=== PATIENT | male | born 1940 | race Caucasian/White ===

== ENCOUNTER 2020-04-15 06:08 | Inpatient (IN) | payer OTHER, MEDICARE ==
[~2020-04-15] VITALS: Ht 188 cm; Wt 103.0 kg
--- NOTE | ~2020-04-15 | EMS ---
[address] [address] EMS Patient Care Report Name: SONIYA MONCADA Room #: REG OZIEL Velasquez#: [id number] Admission: 04/15/20 Attend Phys: Discharge: Date of : 42 Report #: [id number] THIS REPORT FOR: //name// Report Transmitted: 04/15/2020 06:24 EMS Care Summary [facility] MED-ACT Incident [id number] @ 04/15/2020 05:18 Incident Location [address] [place] [address] Patient SONIYA MONCADA Male, 80 Years 1940 Patient Address [address] [place] [address] Patient History Diabetes,Hypertension (HTN),Atrial Fibrillation, Patient Allergies Penicillin allergy,Sulfa,Other drug allergy, Patient Medications Plavix, Omeprazole, Lisinopril, Finasteride, Atenolol, Lasix, Chief Complaint "I can't breathe" Disposition Transported No Lights/[place] Dispatch Reason Breathing Problem Transported To [facility] Narrative [id number] arrived on scene to find pt seated on the edge of his bed. Pt appeared to have an elevated respiratory rate. Pt states "I've been having shortness of breath since about 2330 last night. [address] [address] EMS Patient Care Report Name: SONIYA MONCADA Room #: REG OZIEL Velasquez#: [id number] Admission: 04/15/20 Attend Phys: Discharge: Date of : 42 Report #: [id number] It kept getting worse, so I figured I should call you guys." Pt reports staying in his home and only having two different people bring him groceries and essentials. Pt denies recent illness. Pt initially complains of some pain between his shoulder blades, but says "it's because I'm sitting up." Pt's pain went away after he was laying on the cot. Pt denies chest pain, dizziness, or nausea. However, he states he is weaker than normal. VS, exam. Pt heavily assisted to stand and sit on stair chair, secured with seatbelts--> heavily assisted to stand and sit on cot, secured with seatbelts--> unit. ECG, 12 lead, IV established, 400 ccs of NS given upon hospital arrival. bG checked- 142. Initial Vitals @05:49P: 93,BP: 105/68, @05:51P: 160,SpO2: 97, @05:41P: 81, @05:30P: 69,BP: 61/38,SpO2: 97, @05:47P: 115,DC Suspected: false @05:56P: 96,SpO2: 79, @06:02P: 79,R: 16,BP: 120/77,Pain: 0/10,GCS: 15,Glucose: 142,SpO2: 98,Revised Trauma: 12, @05:28P: 104,BP: 75/41,Pain: 2/10,GCS: 15,SpO2: 99, Assessments @05:26MENTAL:Person Oriented,Time Oriented,Place Oriented,Event Oriented,SKIN:HEENT:Head/Face: No Abnormalities,Neck/Airway: No Abnormalities,LUNG SOUNDS:General: No Abnormalities,ABDOMEN:General: No Abnormalities,PELVIS//GI:No Abnormalities,EXTREMITIES:Left Leg: Weakness,Right Leg: Weakness,Left Arm: Weakness,Right Arm: Weakness,PULSE:Radial: Absent,NEURO:Weakness Left-Sided,Weakness Right-Sided, Impression Hypotension Procedures @05:4712-Lead ECGResponse: UnchangedSucceeded@05:47Normal Saline (.9% NaCl) 400cc (20 ga) Site: Antecubital-RightResponse: UnchangedSucceeded Timeline 05:18,Call Received 05:18,Psap Call 05:18,Dispatched 05:20,En Route 05:23,On Scene 05:25,At Patient 05:28,BP: 75/41 M,PULSE: 104,RR: R,SPO2: 99 Ox,ETCO2: ,BG: ,PAIN: 2,GCS: 15, [address] [address] EMS Patient Care Report Name: SONIYA MONCADA Room #: REG [facility].#: [id number] Admission: 04/15/20 Attend Phys: Discharge: Date of : 42 Report #: [id number] 05:30,BP: 61/38 M,PULSE: 69,RR: R,SPO2: 97 Ox,ETCO2: ,BG: ,PAIN: ,GCS: , 05:41,BP: / M,PULSE: 81,RR: R,SPO2: Ox,ETCO2: ,BG: ,PAIN: ,GCS: , 05:47,Normal Saline (.9% NaCl) 400cc 20 ga Site: Antecubital-Right,Response: UnchangedSucceeded, 05:47,12-Lead ECG,Response: UnchangedSucceeded, 05:47,BP: / M,PULSE: 115,RR: R,SPO2: Ox,ETCO2: ,BG: ,PAIN: ,GCS: , 05:49,BP: 105/68 M,PULSE: 93,RR: R,SPO2: Ox,ETCO2: ,BG: ,PAIN: ,GCS: , 05:50,Depart Scene 05:51,BP: / M,PULSE: 160,RR: R,SPO2: 97 Ox,ETCO2: ,BG: ,PAIN: ,GCS: , 05:56,BP: / M,PULSE: 96,RR: R,SPO2: 79 Ox,ETCO2: ,BG: ,PAIN: ,GCS: , 06:02,At Destination 06:02,BP: 120/77 M,PULSE: 79,RR: 16 R,SPO2: 98 Ox,ETCO2: ,B,PAIN: 0,GCS: 15, 06:29,Call Closed Disclaimer v1.1 Copyright 2020 [employer] This EMS Care Summary contains data elements from the applicable legal record (which may be displayed differently). It is designed to provide pertinent information for the following purposes: continuity of care, clinical quality, and state data reporting. The complete legal record is available to ED staff and administrators of the receiving hospital in [employer] Patient Tracker. All data is provided "as is."
--- NOTE | ~2020-04-15 | EMS ---
[address] [address] EMS Patient Care Report Name: SONIYA MONCADA Room #: 211-P [facility] IN M.R.#: [id number] Admission: 04/15/20 Attend Phys: Jaime Holley MD Discharge: 04/20/20 Date of : 42 Report #: [id number] THIS REPORT FOR: //name// Report Transmitted: 04/23/2020 09:58 EMS Care Summary [facility] MED-ACT Incident [id number] @ 04/15/2020 05:18 Incident Location [address] [place] [address] [address] [address] Patient SONIYA MONCADA Male, 80 Years 1940 Patient Address [address] [place] [address] Patient History Diabetes,Hypertension (HTN),Atrial Fibrillation, Patient Allergies Penicillin allergy,Sulfa,Other drug allergy, Patient Medications Plavix, Omeprazole, Lisinopril, Finasteride, Atenolol, Lasix, Chief Complaint "I can't breathe" Disposition Transported No Lights/[place] Dispatch Reason Breathing Problem Transported To [facility] Narrative [id number] arrived on scene to find pt seated on the edge of his bed. Pt appeared to have an elevated respiratory rate. [address] [address] EMS Patient Care Report Name: SONIYA MONCADA Room #: 211-P DIS IN .R.#: [id number] Admission: 04/15/20 Attend Phys: Jaime Holley MD Discharge: 04/20/20 Date of : 42 Report #: [id number] Pt states "I've been having shortness of breath since about 2330 last night. It kept getting worse, so I figured I should call you guys." Pt reports staying in his home and only having two different people bring him groceries and essentials. Pt denies recent illness. Pt initially complains of some pain between his shoulder blades, but says "it's because I'm sitting up." Pt's pain went away after he was laying on the cot. Pt denies chest pain, dizziness, or nausea. However, he states he is weaker than normal. VS, exam. Pt heavily assisted to stand and sit on stair chair, secured with seatbelts--> heavily assisted to stand and sit on cot, secured with seatbelts--> unit. ECG, 12 lead, IV established, 400 ccs of NS given upon hospital arrival. bG checked- 142. Initial Vitals @05:49P: 93,BP: 105/68, @05:51P: 160,SpO2: 97, @05:41P: 81, @05:30P: 69,BP: 61/38,SpO2: 97, @05:47P: 115,ID Suspected: false @05:56P: 96,SpO2: 79, @06:02P: 79,R: 16,BP: 120/77,Pain: 0/10,GCS: 15,Glucose: 142,SpO2: 98,Revised Trauma: 12, @05:28P: 104,BP: 75/41,Pain: 2/10,GCS: 15,SpO2: 99, Assessments @05:26MENTAL:Person Oriented,Time Oriented,Place Oriented,Event Oriented,SKIN:HEENT:Head/Face: No Abnormalities,Neck/Airway: No Abnormalities,LUNG SOUNDS:General: No Abnormalities,ABDOMEN:General: No Abnormalities,PELVIS//GI:No Abnormalities,EXTREMITIES:Left Leg: Weakness,Right Leg: Weakness,Left Arm: Weakness,Right Arm: Weakness,PULSE:Radial: Absent,NEURO:Weakness Left-Sided,Weakness Right-Sided, Impression Hypotension Procedures @05:4712-Lead ECGResponse: UnchangedSucceeded@05:47Normal Saline (.9% NaCl) 400cc (20 ga) Site: Antecubital-RightResponse: UnchangedSucceeded Timeline 05:17,Call Received 05:17,Psap Call 05:18,Dispatched 05:20,En Route 05:23,On Scene 05:25,At Patient [address] [address] EMS Patient Care Report Name: SONIYA MONCADA Room #: 211-P [facility] IN M.R.#: [id number] Admission: 04/15/20 Attend Phys: Jaime Holley MD Discharge: 04/20/20 Date of : 42 Report #: [id number] 05:28,BP: 75/41 M,PULSE: 104,RR: R,SPO2: 99 Ox,ETCO2: ,BG: ,PAIN: 2,GCS: 15, 05:30,BP: 61/38 M,PULSE: 69,RR: R,SPO2: 97 Ox,ETCO2: ,BG: ,PAIN: ,GCS: , 05:41,BP: / M,PULSE: 81,RR: R,SPO2: Ox,ETCO2: ,BG: ,PAIN: ,GCS: , 05:47,Normal Saline (.9% NaCl) 400cc 20 ga Site: Antecubital-Right,Response: UnchangedSucceeded, 05:47,12-Lead ECG,Response: UnchangedSucceeded, 05:47,BP: / M,PULSE: 115,RR: R,SPO2: Ox,ETCO2: ,BG: ,PAIN: ,GCS: , 05:49,BP: 105/68 M,PULSE: 93,RR: R,SPO2: Ox,ETCO2: ,BG: ,PAIN: ,GCS: , 05:50,Depart Scene 05:51,BP: / M,PULSE: 160,RR: R,SPO2: 97 Ox,ETCO2: ,BG: ,PAIN: ,GCS: , 05:56,BP: / M,PULSE: 96,RR: R,SPO2: 79 Ox,ETCO2: ,BG: ,PAIN: ,GCS: , 06:02,At Destination 06:02,BP: 120/77 M,PULSE: 79,RR: 16 R,SPO2: 98 Ox,ETCO2: ,B,PAIN: 0,GCS: 15, 06:30,Call Closed Disclaimer v1.1 Copyright 2020 [employer] This EMS Care Summary contains data elements from the applicable legal record (which may be displayed differently). It is designed to provide pertinent information for the following purposes: continuity of care, clinical quality, and state data reporting. The complete legal record is available to ED staff and administrators of the receiving hospital in [employer]'s Patient Tracker. All data is provided "as is."
[~2020-04-15 06:08] MED LIST: ACETAMINOPHEN325 M1 PO; ACIDOPHILUS PR1 EACH PO; ACTOS 30 MG TAB30 M1 PO; ACTOS 45 MG45 M1 PO; ALDACTONE25 MG PO; ANTACID II-SIM360 ML PO; APAP650 PO; ASPIR 8181 MG PO; ASPIRIN325 PO; ASPIRIN81 M2 PO; ATENOLOL 100MG100 MG PO; BACTRIM DS TAB1 EACH PO; BETADINE1 EACH TOP; CARDIZEM CD240 MG PO; CENTRUM SILVER1 EAC2 PO; CENTRUM SILVER1 EAC4 PO; CIPROFLOXACIN500 M1 PO; CLINDAMYCIN HC150 MG PO; CLONIDINE PO; CLOTRIMAZOLE 1%15 G1 TOP; COLACE100 MG PO; COMPAZINE10 M2 PO; COUMADIN 5 MG TA5 M1 PO; DILTIAZEM 24HR120 M2 PO; DILTIAZEM 24HR240 M1 PO; DILTIAZEM 24HR360 M1 PO; DILTIAZEM ER240 M1 PO; DOCUSATE SODIU100 MG PO; FENTANYL 1100 MCG/HR TOP; FENTANYL PA25 MCG/HR TRANSDERM; FENTANYL PATCH75 MCG TRANSDERM; FLOMAX0.4 MG PO; GABAPENTIN 100100 MG PO; GLUCERNA1 EACH PO; GLUCOPHAGE1000 MG PO; HYCODAN SYRUP480 ML PO; HYDROCODON-ACE1 EAC5 PO; HYDROCODON-ACE1 EAC7 PO; IBUPROFEN 200200 M1 PO; IRON325 PO; LANOXIN 0.250.25 M1 PO; LANTUS SOL100 UNIT/1 SUBQ; LANTUS SUBQ; LASIX 40 MG TAB40 M2 PO; LISINOPRIL40 MG PO; LISINOPRIL5 MG PO; LOPRESSOR 50 MG50 M1 PO; LYRICA 50 MG50 MG PO; MELATONIN3 MG PO; METFORMIN HCL500 MG PO; METHOCARBAMOL500 M2 PO; MINOCIN100 MG PO; MIRALAX17 GM PO; MIRALAX255 GM PO; MOM PO; MULTIVITAMINS1 EAC7 PO; NORCO 10-325 T1 EACH PO; NORCO 5-325 TA1 EACH PO; NOVOLOG100 UNIT/1 SUBQ; NYSTATIN1 EA10 TOP; NYSTOP; OXYCODONE HCL 55 MG PO; OXYCODONE HCL5 MG PO; PIOGLITAZONE15 MG PO; PLAVIX 75 MG TA75 M1 PO; POVIDONE IODINE; PRILOSEC 20 MG20 MG PO; PROBIOTIC1 EAC1 PO; PROSCAR 5MG TABL5 MG PO; ROBAXIN 750 MG750 M1 PO; ROBAXIN500 MG PO; ROXICODONE5 M2 PO; TOPROL XL100 MG PO; TOPROL XL25 MG PO; TOPROL XL50 MG PO; TORSEMIDE PO; TRILEPTAL150 MG PO; TYLENOL325 MG PO; VAN500AD IV; VANCOMYCIN1 GM/2502 IVPB; VITAMINC500 PO; ZAROXOLYN 5MG TA5 M1 PO; ZESTRIL2.5 MG PO; ZOFRAN4 MG PO
[2020-04-15 06:12] VITALS: BP 112/74
[2020-04-15 06:37] LABS: HEMATOCRIT 35.9 % (42.0-52.0); HEMOGLOBIN 11.8 gm/dL (14.0-18.0); MCH 30.6 pg (26.0-34.0); MCHC 32.9 g/dL (28.0-37.0); MCV 93.2 fL (80.0-100.0); PLATELET COUNT 131 thou/uL (150-400); RBC 3.85 mil/uL (4.50-6.00); RDW 16.7 % (10.5-14.5); WBC 4.5 thou/uL (4.0-11.0)
[2020-04-15 06:51] LABS: URINE BLOOD 2+ (Negative); URINE CLARITY CLEAR; URINE GLUCOSE-RANDOM* NEGATIVE (Negative); URINE KETONES TRACE (Negative); URINE NITRITE-REFLEX NEGATIVE (Negative); URINE PROTEIN (DIPSTICK) 1+ (Negative); URINE SPECIFIC GRAVITY >= 1.030 (1.005-1.035)
[2020-04-15 06:55] LABS: URINE LEUKOCYTES-REFLEX 1+ (Negative)
[2020-04-15 06:56] LABS: ICTOTEST (BILI CONFIRMATORY) Negative (Negative); URINE BILIRUBIN NEGATIVE (Negative); URINE COLOR DK YELLOW
[2020-04-15 07:03] LABS: ANION GAP 9 mmol/L (7-16); BUN 31 mg/dL (7-18); CALCIUM 8.8 mg/dL (8.5-10.1); CHLORIDE 110 mmol/L (98-107); CO2 24 mmol/L (21-32); CREATININE 1.6 mg/dL (0.7-1.3); GLUCOSE 148 mg/dL (74-106); POTASSIUM 4.2 mmol/L (3.5-5.1); SODIUM 143 mmol/L (136-145)
[2020-04-15 07:12] LABS: TROPONIN-I <0.06 ng/mL (<0.06)
[2020-04-15 07:51] LABS: CASTS None Seen /LPF (None Seen); CRYSTALS None Seen /LPF (None Seen); SQUAMOUS None Seen /LPF (0-3); URINE RBC 3-10 Few /HPF (0-2)
[2020-04-15 07:53] LABS: WBC CLUMPS Occasional (None Seen)
--- NOTE | 2020-04-15 08:51 | EKG ---
[facility] [place] [address] ELECTROCARDIOGRAM REPORT Name: SONIYA MONCADA Room #: REG [facility]#: [id number] Admission: 04/15/20 Attend Phys: Discharge: Date of : 44 Report #: [id number] THIS REPORT FOR: cc: [facility] - Clinic physician unknown [facility] - Clinic physician unknown Kuldeep Cavazos MD [facility] ~ THIS REPORT FOR: //name// [facility] ED Test Date: 2020-04-15 Test Time: 06:14:29 Pat Name: SONIYA OMNCADA Department: Room: Gender: Community Health Nurse Staff: DELGADO SCOTT : 1940 Requested By: Celestino Willingham Order Number: [id number] MD: Kuldeep Cavazos Measurements Intervals [place] Rate: 121 P: [place]: QRS: 20 QRSD: 97 T: QT: 367 QTc: 521 Interpretive Statements Atrial fibrillation Prolonged QT interval Compared to ECG 04/18/2016 16:57:51 Prolonged QT interval now present Electronically Signed On 04-15-2020 8:51:24 CDT by Kuldeep Cavazos [email or web address] <ELECTRONICALLY SIGNED> By: Kuldeep Cavazos MD, FAC 0851 3 3 Kuldeep Cavazos MD, [facility] /EPI
[2020-04-15 08:52] LABS: ABSOLUTE NEUTROPHILS 3.2 thou/uL (1.4-8.2); ANISOCYTOSIS 1+
[2020-04-15] MEDS ORDERED: KEFLEX500 M1 PO (09:26)
[2020-04-15 12:31] VITALS: BP 100/65
[2020-04-15 14:43] LABS: ALBUMIN 2.2 g/dL (3.4-5.0); MAGNESIUM 1.7 mg/dL (1.8-2.4); TOTAL PROTEIN 6.5 g/dL (6.4-8.2)
[2020-04-15 15:09] LABS: TSH 3.303 uIU/mL (0.358-3.740)
[2020-04-15 15:29] VITALS: BP 107/72
[2020-04-15 20:08] VITALS: BP 92/58
[2020-04-16 01:06] LABS: GLYCOHEMOGLOBIN (HGB A1C) 5.3 % (4.8-5.6)
[2020-04-16 05:57] VITALS: BP 90/57
[2020-04-16 09:48] VITALS: BP 83/49
[2020-04-16 10:06] LABS: HEMOGLOBIN 11.6 gm/dL (14.0-18.0); MCHC 33.1 g/dL (28.0-37.0); MCV 93.6 fL (80.0-100.0); RBC 3.74 mil/uL (4.50-6.00); RDW 17.2 % (10.5-14.5); WBC 3.9 thou/uL (4.0-11.0)
[2020-04-16 10:07] LABS: CALCIUM 8.7 mg/dL (8.5-10.1); CREATININE 1.6 mg/dL (0.7-1.3); MAGNESIUM 1.7 mg/dL (1.8-2.4); POTASSIUM 4.2 mmol/L (3.5-5.1)
[2020-04-16 11:05] VITALS: BP 135/116
[2020-04-16 22:00] VITALS: BP 62/38
[2020-04-16 22:46] VITALS: BP 74/48
[2020-04-16 23:42] VITALS: BP 91/54
[2020-04-17 01:02] VITALS: BP 85/59
[2020-04-17 04:09] LABS: HEMATOCRIT 32.7 % (42.0-52.0); HEMOGLOBIN 10.7 gm/dL (14.0-18.0); MCH 30.7 pg (26.0-34.0); MCHC 32.7 g/dL (28.0-37.0); RBC 3.48 mil/uL (4.50-6.00); RDW 17.2 % (10.5-14.5); WBC 4.1 thou/uL (4.0-11.0)
[2020-04-17 04:12] LABS: CALCIUM 8.4 mg/dL (8.5-10.1); CREATININE 1.8 mg/dL (0.7-1.3); MAGNESIUM 1.9 mg/dL (1.8-2.4); POTASSIUM 4.1 mmol/L (3.5-5.1)
[2020-04-17 04:28] VITALS: BP 85/56
[2020-04-17 07:32] VITALS: BP 103/59
[2020-04-17 11:31] VITALS: BP 84/47
[2020-04-17 15:12] VITALS: BP 108/57
[2020-04-17 19:53] VITALS: BP 103/61
[2020-04-18 03:04] VITALS: BP 94/45
[2020-04-18 07:45] VITALS: BP 91/41
--- NOTE | 2020-04-18 08:54 | EKG ---
[facility] [address] [facility] [place] [address] ELECTROCARDIOGRAM REPORT Name: SONIYA MONCADA Room #: 211-P ADM IN M.R.#: [id number] Admission: 04/15/20 Attend Phys: Jaime Holley MD Discharge: Date of : 42 Report #: [id number] THIS REPORT FOR: cc: [facility] - Clinic physician unknown [facility] - Clinic physician unknown Kuldeep Cavazos MD [facility] ~ THIS REPORT FOR: //name// [facility] Test Date: 2020-04-16 Test Time: 22:14:48 Pat Name: SONIYA MONCADA Department: Room: 211 Gender: M Administrative Specialist: LOUISE : 1940 Requested By: Meryl Martinez Order Number: [id number] MD: Kuldeep Cavazos Measurements Intervals [place] Rate: 85 P: [place]: QRS: 10 QRSD: 111 T: 242 QT: 469 QTc: 558 Interpretive Statements Atrial fibrillation Low voltage Abnormal R-wave progression, late transition Prolonged QT interval Compared to ECG 04/15/2020 06:14:29 Low QRS voltage now present Electronically Signed On 04-18-2020 8:53:50 CDT by Kuldeep Cavazos [email or web address] <ELECTRONICALLY SIGNED> By: Kuldeep Cavazos MD, [facility] 04/18/20 0853 2214 221 Kuldeep Cavazos MD, [facility] /EPI
[2020-04-18 09:38] LABS: HEMATOCRIT 34.9 % (42.0-52.0); HEMOGLOBIN 11.7 gm/dL (14.0-18.0); MCH 31.3 pg (26.0-34.0); MCHC 33.5 g/dL (28.0-37.0); MCV 93.4 fL (80.0-100.0); RBC 3.74 mil/uL (4.50-6.00); RDW 17.3 % (10.5-14.5); WBC 3.9 thou/uL (4.0-11.0)
[2020-04-18 09:58] LABS: CALCIUM 8.4 mg/dL (8.5-10.1); CREATININE 1.7 mg/dL (0.7-1.3); MAGNESIUM 1.8 mg/dL (1.8-2.4)
[2020-04-18 12:00] VITALS: BP 89/59
--- NOTE | 2020-04-18 13:45 | 2DMMODE ---
[address] [address] 2 D/M-MODE ECHOCARDIOGRAM Name: SONIYA MONCADA TERRENCE Room #: 211-P ADM IN M.R.#: [id number] Admission: 04/15/20 Attend Phys: Jaime Holley MD Discharge: Date of : 42 Report #: [id number] THIS REPORT FOR: cc: [facility] - Clinic physician unknown [facility] - Clinic physician unknown Jacky Menendez MD ~ APPROVED REPORT Study performed: 04/18/2020 11:25:57 EXAM: Comprehensive 2D, Doppler, and color-flow Echocardiogram Patient Location: Bedside Room #: 211 Status: routine BSA: 2.26 HR: 77 bpm BP: 91/41 mmHg Rhythm: Atrial Fibrillation Other Information Study Quality: Technically Difficult Technically limited study due to body habitus, inability to position patient. Indications Hypotension Diabetes Atrial Fibrillation Hypertension/HDD Echo Enhancing Agent Indication: Endocardial border delineation Agent(s) / Amount(s) Used: Optison 4 cc 2D Dimensions IVC: 24.00 mm Aortic Valve AoV Peak Ernesto.: 0.67 m/s AO Peak Gr.: 1.81 mmHg Pulmonary Valve PV Peak Ernesto.: 0.53 m/s PV Peak Gr.: 1.[address] [address] 2 D/M-MODE ECHOCARDIOGRAM Name: SONIYA MONCADA Room #: [facility] ADM IN M.R.#: [id number] Admission: 04/15/20 Attend Phys: Jaime Holley, Discharge: Date of : 42 Report #: [id number] Tricuspid Valve TR Peak Ernesto.: 2.50 m/s TR Peak Gr.: 25.00 mmHg PA Pressure: 35.00 mmHg Left Ventricle The left ventricle is normal size. There is normal left ventricular wall thickness. The left ventricular systolic function is normal. The left ventricular ejection fraction is within the normal range. LVEF is 55%. This study is not technically sufficient to allow evaluation of the LV diastolic function. Right Ventricle Right ventricle is dilated. Right ventricle is mildly hypokinetic. Atria Left atrium is dilated. Right atrium is dilated. Aortic Valve The aortic valve is normal in structure. No aortic regurgitation is present. There is no aortic valvular stenosis. Mitral Valve The mitral valve is normal in structure. Mild mitral regurgitation. No evidence of mitral valve stenosis. Tricuspid Valve The tricuspid valve is normal in structure. There is mild tricuspid regurgitation. Estimated PAP 35 mmHg. There is mild pulmonary hypertension. Pulmonic Valve The pulmonary valve is normal in structure. There is no pulmonic valvular regurgitation. Great Vessels The aortic root is normal in size. IVC is dilated and collapses <50% with inspiration. Pericardium There is no pericardial effusion. <Conclusion> The left ventricle is normal size. LVEF is 55%. [facility] [place] [address] 2 D/M-MODE ECHOCARDIOGRAM Name: SONIYA MONCADA TERRENCE Room #: 211-P ADM IN M.R.#: [id number] Admission: 04/15/20 Attend Phys: Jaime Holley, Discharge: Date of : 42 Report #: [id number] Right ventricle is dilated. Right ventricle is mildly hypokinetic. Left atrium is dilated. Right atrium is dilated. The aortic valve is normal in structure. The mitral valve is normal in structure. Mild mitral regurgitation. The tricuspid valve is normal in structure. There is mild tricuspid regurgitation. Estimated PAP 35 mmHg. There is mild pulmonary hypertension. The pulmonary valve is normal in structure. There is no pericardial effusion. <ELECTRONICALLY SIGNED> By: Jacky Menendez MD 04/18/20 1345 1345 134 Jacky Menendez MD /INF
[2020-04-18 16:00] VITALS: BP 96/47
[2020-04-18 20:27] VITALS: BP 93/59
[2020-04-19] VITALS (8 sets, daily range): BP systolic 78–152; BP diastolic 51–93
[2020-04-19 05:39] LABS: HEMATOCRIT 33.3 % (42.0-52.0); HEMOGLOBIN 10.9 gm/dL (14.0-18.0); MCH 30.8 pg (26.0-34.0); MCHC 32.8 g/dL (28.0-37.0); MCV 93.9 fL (80.0-100.0); RBC 3.55 mil/uL (4.50-6.00); RDW 16.8 % (10.5-14.5); WBC 3.8 thou/uL (4.0-11.0)
[2020-04-19 06:10] LABS: CALCIUM 8.2 mg/dL (8.5-10.1); CREATININE 1.8 mg/dL (0.7-1.3); MAGNESIUM 1.9 mg/dL (1.8-2.4); POTASSIUM 4.1 mmol/L (3.5-5.1)
--- NOTE | 2020-04-19 18:07 | HC ---
[facility] [place] [address] CONSULTATION Name: SONIYA MONCADA Room #: 211-P ADM IN M.R.#: [id number] Admission: 04/15/20 Attend Phys: Jaime Holley MD Discharge: Date of : 42 Report #: [id number] THIS REPORT FOR: cc: [facility] - Clinic physician unknown [facility] - Clinic physician unknown Armaan Ortiz MD ~ CC: [facility] unknown Jaime Holley DATE OF SERVICE: 04/18/2020 CHIEF COMPLAINT: Lower extremity ulcerations. HISTORY OF PRESENT ILLNESS: This is a 80-year-old male patient who was admitted to the hospital with atrial fibrillation and rapid ventricular response and subsequent generalized weakness. His cardiac status is being managed. He was noted to have lower extremity ulcerations and dermatitis and I have been asked to see him with regard to wound care. PAST MEDICAL HISTORY: Positive for history of previous anterior cervical diskectomy and fusion, C3-C4, C4-C5, previous left hip repair, history of atrial fibrillation. He is status post Watchman closure device. He has a history of urinary retention, left fem-pop bypass, history of kidney stones, lumbar radiculopathy, diabetes mellitus, hypertension, peripheral vascular disease, chronic low back pain, previous osteomyelitis of the right foot. SOCIAL HISTORY: Negative for alcohol or tobacco use. FAMILY HISTORY: Noncontributory. CURRENT MEDICATIONS: Include Prilosec, Neurontin, Actos, Proscar, Centrum Silver, iron, Glucophage, Tenormin, Betadine, Plavix, aspirin. ALLERGIES: BACITRACIN, DIAZEPAM, NEOMYCIN, PENICILLIN, POLYMYXIN B, TETANUS IMMUNE GLOBULIN. REVIEW OF SYSTEMS: CONSTITUTIONAL: The patient denies fever, chills or weight loss. NEUROLOGIC: The patient denies focal weakness, numbness or tingling. EYES: The patient denies visual changes, redness, or drainage. ENT: The patient denies earache, nasal drainage, sore throat. CARDIOVASCULAR: The patient denies chest pain, palpitations or diaphoresis. PULMONARY: The patient denies cough or shortness of breath. GASTROINTESTINAL: The patient denies nausea, vomiting, diarrhea. GENITOURINARY: No frequency. Denies dysuria. ORTHOPEDIC: The patient does complain of some mild swelling and some ulceration [address] [address] CONSULTATION Name: SONIYA MONCADA [facility] Room #: [address] [place] [address] IN M.R.#: [id number] Admission: 04/15/20 Attend Phys: Jaime Holley MD Discharge: Date of : 42 Report #: [id number] to his lower extremities. Other systems in a 14-point review of systems are negative. PHYSICAL EXAMINATION: VITAL SIGNS: At this time include temperature 36.6, pulse 86, respiratory rate 18, blood pressure 96/47. GENERAL: This is a chronically ill-appearing male patient who appears to be in minimal distress. HEENT: Head normocephalic. Nose and throat clear. NECK: Supple. LUNGS: Clear. HEART: Irregular without murmur. ABDOMEN: Soft. Bowel sounds present. SKIN: The patient has mild intertrigo to his groin area, likely yeast base. EXTREMITIES: Lower extremities demonstrate diminished distal pulses. CLINICAL IMPRESSION: 1. He has scattered ulcerations on his left lower leg. These appear to be venous or possibly traumatic, but has underlying venous stasis dermatitis to both legs. 2. Type 2 diabetes mellitus. 3. Atrial fibrillation with rapid ventricular response, currently controlled. Cardiology following. 4. History of urinary retention. 5. History of peripheral vascular disease. Arterial Dopplers demonstrate no acute stenosis. I reviewed these with Interventional Radiology who did not recommend any further evaluation based on the Doppler study. 6. Chronic kidney disease, stage 3. RECOMMENDATIONS: At this point in time, we recommend cleansing of the groin area and antifungal moisture barrier cream daily and p.r.n. We recommend AmLactin lotion to both lower extremities. We will cover the open areas of the left leg with Xeroform gauze, ABD, Kerlix and Gonzalo wrap from toes to knees. Recommend PRAFO boots while in bed for pressure prophylaxis of the heels, Betadine to a small deep tissue injury to the left posterior heel. I appreciate being asked to see him in consultation. <ELECTRONICALLY SIGNED> By: Armaan Ortiz MD 04/19/20 1807 1646 1717 Armaan Ortiz MD /nt
[2020-04-20] VITALS (8 sets, daily range): BP systolic 78–140; BP diastolic 47–119
--- NOTE | 2020-04-20 08:26 | EKG ---
[facility] [place] [address] ELECTROCARDIOGRAM REPORT Name: SONIYA MONCADA Room #: 211-P ADM IN M.R.#: [id number] Admission: 04/15/20 Attend Phys: Jaime Holley MD Discharge: Date of : 42 Report #: [id number] THIS REPORT FOR: cc: [facility] - Clinic physician unknown [facility] - [facility] physician unknown Kuldeep Cavazos MD [facility] ~ THIS REPORT FOR: //name// [facility] Test Date: 2020-04-19 Test Time: 17:46:31 Pat Name: SONIYA MONCADA Department: Room: 211 P Gender: M Tap Builder: Alexander MURILLO : 1940 Requested By: Jaime Holley Order Number: [id number] MD: Kuldeep Cavazos Measurements Intervals [place] Rate: 127 P: [place]: QRS: 4 QRSD: 84 T: 188 QT: 372 QTc: 541 Interpretive Statements Atrial fibrillation Low voltage Nonspecific ST and T wave abnormality Prolonged QT interval Compared to ECG 04/16/2020 22:14:48 No significant change was found Electronically Signed On 04-20-2020 8:26:04 CDT by Kuldeep Cavazos [email or web address] <ELECTRONICALLY SIGNED> By: Kuldeep Cavazos MD, [facility] 04/20/20 08 174 174 Kuldeep Cavazos MD, FAC /EPI
[2020-04-20] MEDS ORDERED: FLOMAX0.4 MG PO (10:16)
[2020-04-20] MEDS ORDERED: MIDODRINE HCL 55 M1 PO (10:16)
== END 2020-04-20 13:10 | DRG 871 ==
LOC: ER 06:08 → 2N 10:07 → EROBS 10:07 → 3W 15:57 → 2N 04-18 00:48
PROVIDERS: Emergency Medicine; ADMIT Internal Medicine; ATTEND Internal Medicine
DX: A41.9 Sepsis, unspecified organism (principal); E43 Unspecified severe protein-calorie malnutrition; N39.0 Urinary tract infection, site not specified; I13.0 Hypertensive heart and chronic kidney disease with heart failure and stage 1 through stage 4 chronic kidney disease, or unspecified chronic kidney disease; I50.22 Chronic systolic (congestive) heart failure; L97.929 Non-pressure chronic ulcer of unspecified part of left lower leg with unspecified severity; L97.919 Non-pressure chronic ulcer of unspecified part of right lower leg with unspecified severity; I48.21 Permanent atrial fibrillation; K21.9 Gastro-esophageal reflux disease without esophagitis; E11.42 Type 2 diabetes mellitus with diabetic polyneuropathy; N40.0 Benign prostatic hyperplasia without lower urinary tract symptoms; E11.51 Type 2 diabetes mellitus with diabetic peripheral angiopathy without gangrene; E11.22 Type 2 diabetes mellitus with diabetic chronic kidney disease; M79.89 Other specified soft tissue disorders; I87.2 Venous insufficiency (chronic) (peripheral); F41.9 Anxiety disorder, unspecified; F32.9 Major depressive disorder, single episode, unspecified; I95.9 Hypotension, unspecified; G47.00 Insomnia, unspecified; M25.562 Pain in left knee; N18.3 Chronic kidney disease, stage 3 (moderate); L89.626 Pressure-induced deep tissue damage of left heel; I08.1 Rheumatic disorders of both mitral and tricuspid valves; S30.811A Abrasion of abdominal wall, initial encounter; Z20.828 Contact with and (suspected) exposure to other viral communicable diseases; X58.XXXA Exposure to other specified factors, initial encounter; Y93.89 Activity, other specified; Y92.89 Other specified places as the place of occurrence of the external cause; Y99.8 Other external cause status; Z68.29 Body mass index [BMI] 29.0-29.9, adult; Z98.49 Cataract extraction status, unspecified eye; Z98.1 Arthrodesis status; Z79.01 Long term (current) use of anticoagulants; Z79.82 Long term (current) use of aspirin; Z79.899 Other long term (current) drug therapy; Z88.1 Allergy status to other antibiotic agents; Z88.0 Allergy status to penicillin; Z88.7 Allergy status to serum and vaccine; Z88.8 Allergy status to other drugs, medicaments and biological substances
CPT/HCPCS: 10081; 10879

== ENCOUNTER 2020-04-20 09:44 | Inpatient (IN) | payer OTHER, MEDICARE ==
[~2020-04-20] VITALS: Ht 188 cm; Wt 144.0 kg
--- NOTE | ~2020-04-20 | H ---
[facility] [place] [address] HISTORY AND PHYSICAL Name: SONIYA MONCADA Room #: 512-P ADM IN M.R.#: [id number] Admission: 04/20/20 Attend Phys: Michael Villatoro MD Discharge: Date of : 44 Report #: [id number] THIS REPORT FOR: cc: [facility] - Clinic physician unknown [facility] - Clinic physician unknown Michael Villatoro MD ~ CC: Michael CARMONA unknown DATE OF SERVICE: 04/20/2020 HISTORY AND PHYSICAL/POST-ADMISSION PHYSICIAN EVALUATION HISTORY OF PRESENT ILLNESS: The patient is a 80-year-old white male who was originally admitted to [facility] on 04/15/2020 with generalized weakness, fatigue, shortness of air. He was diagnosed with atrial fibrillation, rapid ventricular rate, admitted to the ICU. He was placed on a Cardizem drip. He had hypotension. Cardizem was discontinued, given IV fluid bolus. He was seen by wound care for venous stasis dermatitis and left lower extremity ulcer. Noted to have lower extremity edema. Doppler was negative. He was given antibiotics for urinary tract infection. He is noted to have significant functional decline from his premorbid status and has now been admitted for acute in-hospital inpatient rehabilitation. PAST MEDICAL HISTORY: Includes diabetes mellitus, heart disease, hypertension, renal disease, vascular disease. He has a history of atrial fibrillation with a history of Watchman. MEDICATIONS: Please see the full medication listing. ALLERGIES: Multiple as noted. SOCIAL HISTORY: Premorbidly living at home alone, has a ramp entry. He has two close friends, neighbors that will assist with IADLs. He was independent with ADLs, although noted to have poor hygiene, unable to use bedside commode and uses ____ and changes them. He could not get into the shower, so he does sponge bathing in the kitchen. He was able to transfer independently from the bed to the wheelchair or to the chair and was able to propel self in wheelchair around premorbidly. REVIEW OF SYSTEMS: No current complaints of chest pain, shortness of breath or abdominal discomfort. Complains of overall generalized weakness. PHYSICAL EXAMINATION: GENERAL: Again, the patient was seen on 04/20/2020. He was in no distress. VITAL SIGNS: Temperature 98.7, pulse 84, respirations 18, blood pressure 85/52. [address] [address] HISTORY AND PHYSICAL Name: SONIYA MONCADA Room #: 512-P [facility] IN M.R.#: [id number] Admission: 04/20/20 Attend Phys: Michael Villatoro MD Discharge: Date of : 42 Report #: [id number] The patient was alert, follows basic commands. HEENT: Facies appeared symmetric and bearded white male. CHEST: Sounded clear, some diffuse decreased breath sounds. CARDIOVASCULAR: Sounded regular rate and rhythm with occasional extra beats. ABDOMEN: Bowel sounds positive, nontender. EXTREMITIES: He does have some decreased range of motion of the left shoulder due to a prior shoulder injury with the left upper extremity appearing to be weaker than the right upper extremity. He has functional range of motion of the right upper extremity. He has weakness of both lower extremities, basically just antigravity, has venous stasis skin changes. He does have dressings in place, right great toe amputation. He does have multiple toe deformities. There is some nonpitting edema of both lower extremities. He does need assistance with basic transfers and had a mod assist with rolling, supine to sit is max assist. He notes he has not walked in over a year and premorbidly utilized a standard walker to transfer from the bed to the wheelchair by a partial stand. At this point, he has not been able to fully stand with attempted transfers. ASSESSMENT: A 80-year-old male with the following problem list: 1. Medical complexity with generalized debilitation. 2. Atrial fibrillation with rapid ventricular rate, history of Watchman. 3. Hypotension. 4. Venous stasis dermatitis with ulcer, left lower extremity. 5. Diabetes mellitus type 2. 6. Chronic kidney disease stage 3. PLAN: The patient has been admitted for acute in-hospital inpatient rehabilitation. From a postadmission physician evaluation perspective, there are no relevant changes since the preadmission screening. Please see the above review of prior and current medical and functional conditions and comorbidities. Please see the patient's previous and current functional status. As far as risk of complications, he has multiple medical comorbidities as noted above. Initial plan of care involves the interdisciplinary acute inpatient rehabilitation program. Measurable functional goals would be for the patient to hopefully improve as far as his basic transfers with bed mobility, supine to sit and sit to stands that he can hopefully return back to his prior home setting. We will also need to further assess how much assistance his close friends and neighbors could help him with. Prognosis is reasonably good with estimated length of stay probably at least 2 weeks. Potential barriers would include his multiple medical comorbidities and decreased functional status. The patient meets diagnostic criteria for an acute in-hospital inpatient rehabilitation stay. He meets the medical necessity criteria and we will have the sap business intelligence consultant physicians continue to follow. He does have the tolerance for therapies and has appropriate discharge goals back to the home setting. [address] [address] HISTORY AND PHYSICAL Name: SONIYA MONCADA Room #: 512-P ADM IN [facility].#: [id number] Admission: 04/20/20 Attend Phys: Michael Villatoro MD Discharge: Date of : 42 Report #: [id number] ADDENDUM: The patient had been on Lovenox for DVT prophylaxis on acute and I do not see that was continued. He is on aspirin and Plavix. He could not tolerate SCDs because of his lower extremity wounds. He has already had an evaluation to rule out DVT while on acute. I am uncertain if continuing the Lovenox while on rehabilitation is indicated or not with his multiple medical comorbidities. We will be checking with the hospitalist service. By: [id number] Michael Villatoro MD /KINJAL
--- NOTE | ~2020-04-20 | PLAN ---
[facility] [place] [address] REHAB UNIT PLAN OF CARE Name: SONIYA MONCADA Room #: 512-P ADM IN M.R.#: [id number] Admission: 04/20/20 Attend Phys: Michael Villatoro MD Discharge: Date of : 42 Report #: [id number] THIS REPORT FOR: //name// CC: Michael Villatoro [facility] unknown DATE OF SERVICE: 04/22/2020 PROGRESS NOTE/OVERALL PLAN OF CARE The patient is seen back today in followup. He is in no distress. Temperature 36.3, pulse 92, respirations 18, blood pressure 105/65. He is cooperative with the therapist and was working with speech therapy when I came in. Manual muscle testing of his lower extremities appears unchanged today on examination. He remains at a very low level functionally and is max assist of 2 with sit to stand. Transfers bed to wheelchair have been dependent. Unable to ambulate. Mod assist with basic bed mobility. In occupational therapy, lower body dressing is dependent, upper body dressing is min assist. Speech therapy is working with him. He does have moderate cognitive deficits with severe memory deficits. ASSESSMENT: A 80-year-old white male with the following problem list: 1. Medical complexity with generalized debilitation. 2. Atrial fibrillation with rapid ventricular rate. History of Watchman. 3. Hypotension. 4. Venous stasis dermatitis with ulcer of left lower extremity. 5. Diabetes mellitus type 2. 6. Chronic kidney disease stage 3. 7. Bilateral knee, neck and shoulder pain. PLAN: The overall plan of care is based on the preadmission screen, post-admission physician evaluation and information garnered from therapy assessments. 1. Estimated length of stay is probably at least 10 days to 2 weeks. 2. Medical prognosis is reasonably good. 3. Anticipated interventions includes the interdisciplinary acute inpatient rehabilitation program. 4. Anticipated functional outcomes would be for the patient to become modified independent with transfers. He was nonambulatory premorbidly and the main focus will be on the transfers as far as basic mobility and ADLs as well as to improve as far as overall cognition. 5. Discharge destination would be back to the home setting. He does have a closely involved friends and neighbors that can assist. 6. Expected therapy by discipline includes PT, OT and speech 1 hour per day [address] [address] REHAB UNIT PLAN OF CARE Name: SONIYA MONCADA TERRENCE Room #: 512-P [facility] IN [facility]#: [id number] Admission: 04/20/20 Attend Phys: Michael Villatoro MD Discharge: Date of : 42 Report #: [id number] each five days a week throughout the duration of the acute inpatient rehabilitation stay. By: [id number] Michael Villatoro MD /nt
[~2020-04-20 09:44] MED LIST changes: +KEFLEX500 M1 PO
[2020-04-20] MEDS ORDERED: FLOMAX0.4 MG PO (10:16)
[2020-04-20] MEDS ORDERED: MIDODRINE HCL 55 M1 PO (10:16)
--- NOTE | 2020-04-20 13:42 | NUR ---
Spoke with LSOP TAMIKA alerted of dc today. Chart copied. Transfer forms faxed. TAMIKA Brunson reports patient will return to 3 rd floor for therapy and monitor post hospital stay. She asks that casemgr let her know. Sp with patient she was agreeable for plan. DC service planner to notify niece and arrange transport.
--- NOTE | 2020-04-20 13:46 | NUR ---
Spoke with LSOP ATMIKA Brunson. Updated of dc today and faxed orders as well as negative covid test. Boy reports patient will return to 3rd floor for monitor post hospital stay and therapy. She reports patient does not know yet and if casemgt could tell her. Sp with patient who was agreeable. DC special events planner to arrange transport and notify niece.
--- NOTE | 2020-04-20 15:59 | NUR ---
1500 ADMITTED TO ROOM 512. PATIENT IS ALERT AND ORIENTED X4. PATIENT NAIR'S, FORGING MACHINE OPERATOR ARE EQUAL. LUNGS ARE CLEAR AND DEMINISHED. ABD IS SOFT WITH BSX4. VOIDS PER URINAL. PATIENT IS SLIDE BOARD TRANSFER. FALL AND SAFETY PROTOCOLS IN PLACE. DENIES PAIN AT THIS TIME. PLAN PT/OT/ST IN AM. CALL LIGHT IN REACH . CONSENTS SIGNED. PATIENT HAS BRUISES ON ARMS. PATIENT HAS GREG WRAPS TO HIS LOWER EXTREMITIES. WILL CONTINUE TO MONITER.
[2020-04-20 20:17] VITALS: BP 121/98
--- NOTE | 2020-04-21 02:35 | NUR ---
LAXATIVES ENCOURAGED SINCE PATIENT IS TAKING IRON. PT RESPONDS THAT HE HAS BEEN TAKING IRON FOR A YEAR AND FREQUENTLY GOES A WEEK BETWEEN BOWEL MOVEMENTS
[2020-04-21 05:37] LABS: CALCIUM 8.2 mg/dL (8.5-10.1); CREATININE 1.6 mg/dL (0.7-1.3); POTASSIUM 4.2 mmol/L (3.5-5.1)
[2020-04-21 05:38] LABS: HEMATOCRIT 30.5 % (42.0-52.0); HEMOGLOBIN 10.4 gm/dL (14.0-18.0); MCH 31.6 pg (26.0-34.0); MCHC 34.1 g/dL (28.0-37.0); MCV 92.6 fL (80.0-100.0); RBC 3.29 mil/uL (4.50-6.00); RDW 17.1 % (10.5-14.5); WBC 3.8 thou/uL (4.0-11.0)
[2020-04-21 07:45] VITALS: BP 85/52
--- NOTE | 2020-04-21 11:55 | NUR ---
chart review. cm tried to visit with pt at bedside, cm cont to wear face mask and shield. pt in bed with eyes close, pale and open mouth breathing. per chart pt lives alone, independent. no longer drives, have to have transportation. neighbor is his dpoa. cm called [facility] left message requesting a call back.
--- NOTE | 2020-04-21 15:21 | NUR ---
ASSUMED CARE AT 0700. PATIENT IS ALERT AND ORIENTED X4. PAITENT NAIR'S, ASSET PROTECTION MANAGER ARE EQUAL. LUNGS CLEAR. ABD IS SOFT WITH BSX4. NO BM YET. PATENT UP IN CHAIR FOR 5 MIN. HAVING SEVERE WHYTE PAIN. MEDICATED WITH PRN PAIN MED. VOIDS SAI COLORED URINE PER URINAL. LAXATIVES GIVEN FOR NO BM. FALL AND SAFETY PROTOCOLS IN PLACE. PAIN ABOVE. CONTINUES TO PROGRESS SLOWLY TOWARDS D/C GOALS. WILL CONTINUE TO MONITER.
[2020-04-21 19:33] VITALS: BP 97/65
--- NOTE | 2020-04-22 03:46 | NUR ---
LAXATIVES IN THE EVENING AGAIN, DECLINED SUPPOSITORY, SAT ON BEDPAN FOR WHAT TURNED OUT TO BE FLATUS. PULED UP IN BED TWICE AND TURNED TO SIDE 3 TIMES, ANTI-FUNGAL CREAM TO GROIN, INTERDRY IN PLACE.
[2020-04-22 07:35] VITALS: BP 105/65
--- NOTE | 2020-04-22 15:40 | NUR ---
ASSUMED CARES AT 0700. PT AWAKE, ALERT AND ORIENTED*4. C/O DISCOMFORT ON HIS BUTTOCKS AND RIGHT SHOULDER, REPOSITIONED NEEDED. VITALS REMAIN STABLE. WOUNDS TO BLE AND GROIN CLEANED AND DRESSING CHANGED. PT UP WITH MAX ASSIST OF 2 AND GISEL, SITTING ON THE EDGE OF BED FOR 15MINS THIS AFTERNOON AND TOLERATED WELL. Q1H VISUAL CHECKS. CALL LIGHT WITHIN REACH. FALL PRECAUTIONS IN PLACE
[2020-04-22 19:26] VITALS: BP 88/59
--- NOTE | 2020-04-22 23:56 | NUR ---
PT ALERT AND ORIENTED X 4. DRESSINGS TO LE'S C/D/I. PT HAS HAD 3 BM'S THIS EVENING. BLOOD SUGAR 158 AT HS. PT DENIES PAIN OR DISCOMFORT. BED ALARM ON FOR SAFETY. PT APPEARS TO BE SLEEPING ON HOURLY ROUNDS.
--- NOTE | 2020-04-23 01:28 | NUR ---
PT HAS PRESSSURE WOUND ON RIGHT BUTTOCKS. PICTURE TAKEN AND PLACED IN CHART. BARRIER CREAM APPLIED. PT REFUSED TURNING TO SIDE BUT DID ALLOW PILLOW UNDER RIGHT HIP TO RELIEVE PRESSURE OFF BOTTOM.
[2020-04-23 08:00] VITALS: BP 85/52
[2020-04-23 10:30] VITALS: BP 62/40
[2020-04-23 11:30] VITALS: BP 78/42
[2020-04-23 12:42] LABS: CALCIUM 8.6 mg/dL (8.5-10.1); POTASSIUM 4.2 mmol/L (3.5-5.1)
--- NOTE | 2020-04-23 14:02 | NUR ---
ASSUMED CARES AT 0700. PT AWAKE, ALERT AND ORIENTED*4. DENIES PAIN. BP LOW, MIDODRINE GIVEN NEEDED. AT AROUND 1100 PT STARTED C/O DIZZINESS DURING ST, BP CHECKED WAS SBP<70 DR NOTIFIED AND ORDERS RECEIVED. IV STARTED ON LEFT FOREARM AND NS ADMINISTERED AT 250ML/HR. PT WAS PALE AND VERY SLEEPY BUT EASILY AROUSABLE, 15MINS LATER HE STARTED WAKING UP AND SBP >70. 30MINS LATER PT STABLE BP AT THE BASELINE (SBP 80'S). SATS IN 70'S-80'S DURING EPISODE, PT STARTED ON 2L AND SATS UP TO 100%. PT CONTINUES TO HAVE WOUNDS IN BLE, GROIN AND BUTTOCKS. WOUNDS CLEANED AND DRESSING CHANGED PER ORDER. PT UP WITH MAX ASSIST. REPOSITIONING TOLERATED, PT REFUSING Q2H TURNS. Q1H VISUAL CHECKS. CALL LIGHT WITHIN REACH. FALL PRECAUTIONS IN PLACE
[2020-04-23 17:05] VITALS: BP 82/47
[2020-04-23 19:30] VITALS: BP 112/90
--- NOTE | 2020-04-24 00:13 | NUR ---
PT ALERT AND ORIENTED X 4. 02 ON AT 2L PER NC. LE WRAPS INTACT BILAT. PT DENIES PAIN OR DISCOMFORT. PT REFUSES TO BE TURNED FROM SIDE TO SIDE. BED ALARM ON FOR SAFETY. PT CHECKED ON HOURLY ROUNDS.
[2020-04-24 08:00] VITALS: BP 80/47
--- NOTE | 2020-04-24 17:53 | NUR ---
PATIENT NOW SLEEPING AND RESPIRATIONS ARE EVEN NON LABORED. WEANED OFF OXYGEN THIS AM HE WAS 96% AT ROOM AIR. PLEASANT WITH CARES. DRESSING CHANGED TO BLE. WILL CONT WITH PLAN OF CARE.
[2020-04-24 20:00] VITALS: BP 90/51
--- NOTE | 2020-04-25 03:27 | NUR ---
REFUSING TURNS HE STATES HE DOES BETTER LAYING ON HIS BACK. LEFT LEG REWRAPPED WITH LESS LOTION SINCE IT WAS STINGING AND HE FELT TOO MUCH LOTION WAS CAUSING IT. TOLERATED PRAFO BOOTS FOR 5 HOURS TOTAL, REFUSING NOW
[2020-04-25 07:45] VITALS: BP 93/55
[2020-04-25 11:10] VITALS: BP 88/56
[2020-04-25 11:52] LABS: HEMATOCRIT 29.7 % (42.0-52.0); HEMOGLOBIN 9.8 gm/dL (14.0-18.0); MCH 31.1 pg (26.0-34.0); MCHC 33.1 g/dL (28.0-37.0); MCV 94.1 fL (80.0-100.0); RBC 3.16 mil/uL (4.50-6.00); RDW 17.6 % (10.5-14.5); WBC 3.2 thou/uL (4.0-11.0)
[2020-04-25 12:15] LABS: ALBUMIN 1.7 g/dL (3.4-5.0); CALCIUM 8.5 mg/dL (8.5-10.1); CREATININE 2.1 mg/dL (0.7-1.3); MAGNESIUM 1.9 mg/dL (1.8-2.4); POTASSIUM 4.7 mmol/L (3.5-5.1); TOTAL BILIRUBIN 0.6 mg/dL (0.2-1.0); TOTAL PROTEIN 5.6 g/dL (6.4-8.2)
--- NOTE | 2020-04-25 13:36 | NUR ---
ASSUMED CARES AT 0700. PT AWAKE, ALERT AND ORIENTED*4. DENIES PAIN. HYPOTENSIVE. DURING PHYSICAL THERAPY PT STATED THAT HE FELT LIKE HE WAS ABOUT TO PASS-OUT. SBP IN THE 70'S AND PT WAS VERY PALE AND LETHARGIC. HOSPITALIST AND CARDIOLOGY CONTACTED AND ORDERS RECEIVED. NS ADMINISTERED AT 250ML/HR. IV STARTED ON RIGHT FOREARM AFTER LEFT FOREARM IV INFILTRATED. PT MORE STABLE AND BP STABILISED 88/56 TAKEN MANUALLY. WOUNDCARE COMPLETED TO GROIN AREA, CIRA LE AND BUTTOCKS. PT UNABLE TO TOLERATE THERAPY WELL DUE TO HYPOTENSION. UP WITH 2 SLIDEBOARD ASSIST AND GB. FREQUENT VISUAL CHECKS. CALL LIGHT WITHIN REACH. FALL PRECAUTIONS IN PLACE.
[2020-04-25 15:22] VITALS: BP 82/51
[2020-04-25 19:38] VITALS: BP 91/67
--- NOTE | 2020-04-26 01:27 | NUR ---
TURNED TO RIGHT SIDE AND PULLED UP IN BED TWICE BY HIS REQUEST TO GET HIM OFF HIS BOTTOM. OPTIFOAM SACRAL DRESSING TO COVER OPEN AREA RIGHT BUTTOCK. TAKING MIRALAX AND COLACE DUE TO NO BM FOR A FEW DAYS. VOIDING WITH ASSIST
[2020-04-26 05:53] VITALS: BP 89/52
[2020-04-26 08:00] VITALS: BP 98/63
--- NOTE | 2020-04-26 13:15 | NUR ---
team meeting, recommendation: on cont ivf, bp 80/50. trying slide board. mech lift transfer sometimes with tired. assist with pills and bills. pt has scooter at home not a wheel chair. dc 9/10 skilled vs 24 hr assistance. if goes skilled need covid test 72hr prior to dc.
--- NOTE | 2020-04-26 15:48 | NUR ---
MID SHIFT CHANGE OF CARE: ASSUMED CARE OF PT APPROX 1450, INTRO'D SELF TO PT, A&0X4, HASN'T AMB IN A LONG TIME PER HIS STATEMENT, MOVES TO W/C WITH TWO ASSIST AND SLIDE BOARD PER REPORT AND PT'S STATEMENT. USES URINAL SOMEWHAT SUCCESSFULLY, REPORTS OF TWO DRESSING CHANGES W/SACRAL DONE PER RUPINDER COLINDRES, GOT READY TO DO BLE AND HE DECLINED, SAID HE DIDN'T WANT ME TO 'MESS WITH THIS RIGHT NOW'. WILL TRY AGAIN LATER IN SHIFT. NO NEEDS AT THIS TIME OTHER THAN A SLIGHT POSITION CHANGE. ENCOURAGED HIM TO USE CALL LIGHT FOR ANY NEEDS. WILL CONTINUE TO MONITOR
[2020-04-26 19:05] VITALS: BP 110/76
[2020-04-26 22:40] VITALS: BP 116/78
[2020-04-26 23:15] VITALS: BP 120/91
--- NOTE | 2020-04-26 23:52 | NUR ---
PATTERN CHANGER AND REPAIRER NOTIFIED THIS NURSE THAT PT WAS WHEEZING AND SOB AT 2235. VS 116/78, APICAL PULSE 144 AND IRREGULAR. PT C/O EPIGASTRIC PAIN. JUN CALLED AND ALLY NURSING COMMUNITY RELATIONS DIRECTOR IN TO ASSESS PT. EKG DONE AND IT SHOWED ATRIAL FIB. 4O MG IV LASIX GIVEN. CXR DONE. ALLY SPOKE TO ROSALINDA AQUINO. DR. VILLASENOR NOTIFIED WITH ORDERS RECEIVED. AMIODARONE AND METOPROLOL GIVEN ORDERED. PT PRESENTLY RESTING WITH 02 AT 2L PER NC AND HOB UP. STATES HE IS BREATHING BETTER. VOIDED 100 ML CLEAR YELLOW URINE PER URINAL. WILL CONTINUE TO MONITOR.
[2020-04-27 00:08] LABS: CALCIUM 8.5 mg/dL (8.5-10.1); POTASSIUM 4.8 mmol/L (3.5-5.1); TOTAL BILIRUBIN 0.7 mg/dL (0.2-1.0); TOTAL PROTEIN 6.5 g/dL (6.4-8.2)
--- NOTE | 2020-04-27 01:27 | NUR ---
MANUFACTURING QUALITY INSPECTOR activated for increased shortness of breath with Afib RVR. See flowsheet for details. Pt remained on unit per doctor's orders.
[2020-04-27 05:00] VITALS: BP 83/52
[2020-04-27 05:36] LABS: HEMATOCRIT 30.9 % (42.0-52.0); HEMOGLOBIN 10.4 gm/dL (14.0-18.0); MCH 31.5 pg (26.0-34.0); MCHC 33.8 g/dL (28.0-37.0); MCV 93.2 fL (80.0-100.0); PLATELET COUNT 132 thou/uL (150-400); RBC 3.32 mil/uL (4.50-6.00); RDW 18.1 % (10.5-14.5); WBC 4.5 thou/uL (4.0-11.0)
[2020-04-27 05:57] LABS: CALCIUM 8.5 mg/dL (8.5-10.1); CREATININE 2.1 mg/dL (0.7-1.3); MAGNESIUM 1.8 mg/dL (1.8-2.4)
--- NOTE | 2020-04-27 06:35 | NUR ---
PT GAINED 5.3 LBS SINCE YESTERDAY. 425 ML URINE OUTPUT SINCE IV LASIX GIVEN LAST EVENING. ROSALINDA AQUINO NOTIFIED WITH ORDERS RECEIVED. CONSULT CALLED TO DR. CHAMBERS'S ANSWERING SERVICE. PT HAS GENERALIZED EDEMA.
--- NOTE | 2020-04-27 07:58 | EKG ---
[facility] [place] [address] [place] [address] ELECTROCARDIOGRAM REPORT Name: SONIYA MONCADA Room #: 512-P ADM IN M.R.#: [id number] Admission: 04/20/20 Attend Phys: Michael Villatoro MD Discharge: Date of : 42 Report #: [id number] THIS REPORT FOR: cc: [facility] - Clinic physician unknown [facility] - Clinic physician unknown Kuldeep Cavazos MD [facility] THIS REPORT FOR: //name// [facility] Test Date: 2020-04-26 Test Time: 22:50:35 Pat Name: SONIYA MONCADA Department: Room: 512 P Gender: M Garment Examiner: MICHELLE : 1940 Requested By: Alberto Tian Order Number: [id number] MD: Kuldeep Cavazos Measurements Intervals [place] Rate: 134 P: [place]: QRS: -6 QRSD: 92 T: QT: 363 QTc: 542 Interpretive Statements Atrial fibrillation Nonspecific ST and T wave abnormality Prolonged QT interval low voltage compared to ECG 04/19/2020 17:46:31 No significant change was found Electronically Signed On 04-27-2020 7:58:24 CDT by Kuldeep Cavazos [email or web address] <ELECTRONICALLY SIGNED> By: Kuldeep Cavazos MD, [facility] 04/27/20 0758 2250 2250 Kuldeep Cavazos MD, [facility] /EPI
[2020-04-27 08:00] VITALS: BP 90/53
--- NOTE | 2020-04-27 08:03 | EKG ---
[facility] [place] [address] ELECTROCARDIOGRAM REPORT Name: SONIYA MONCADA Room #: 512-P ADM IN M.R.#: [id number] Admission: 04/20/20 Attend Phys: Michael Villatoro MD Discharge: Date of : 42 Report #: [id number] THIS REPORT FOR: cc: [facility] - Clinic physician unknown [facility] - Clinic physician unknown Kuldeep Cavazos MD [facility] THIS REPORT FOR: //name// [facility] Test Date: 2020-04-27 Test Time: 07:27:28 Pat Name: SONIYA MONCADA Department: Room: 512 P Gender: M Snow Plow Operator: APRIL : 1940 Requested By: Jersey Hurst Order Number: [id number] MD: Kuldeep Cavazos Measurements Intervals [place] Rate: 91 P: 0 GA: QRS: 12 QRSD: 65 T: -59 QT: 395 QTc: 487 Interpretive Statements Atrial fibrillation Low voltage Borderline prolonged QT interval Nonspecific T wave abnormality Compared to ECG 04/26/2020 22:50:35 No significant change was found Electronically Signed On 04-27-2020 8:03:42 CDT by Kuldeep Cavazos [email or web address] <ELECTRONICALLY SIGNED> By: Kuldeep Cavazos MD, [facility] 04/27/20802 6 6 Kuldeep Cavazos MD, [facility] /EPI
[2020-04-27 09:42] LABS: ABSOLUTE NEUTROPHILS 3.1 thou/uL (1.4-8.2); ANISOCYTOSIS 1+; PLATELET ESTIMATE NORMAL
--- NOTE | 2020-04-27 13:36 | NUR ---
FAXED REFERRAL TO [facility] RECEIVED CONFIRMATION AND LEFT A VOICEMAIL WITH ADM AT FACILITY. FAXED REFERRAL TO [facility] SPOKE WITH YASMIN SHE CAN ACCEPT. DP TO FOLLOW.
--- NOTE | 2020-04-27 20:16 | NUR ---
PT ASSESSED AT START OF SHIFT. DR. OLIVER IN TO SEE PT AND WILL BE FOLLOWING PT DAILY FOR A WHILE. NO THERAPY TODAY. HAD LARGE BM. NO VOID. BLADDER SCANNED 245MLS MAX. IV LASIX ORDERED. WOUND CARE IN THIS AFTERNOON.NEW ORDERS
[2020-04-27 20:39] VITALS: BP 93/52
--- NOTE | 2020-04-28 00:09 | NUR ---
PT ALERT AND ORIENTED X 4. BILATERAL LE DRESSINGS C/D/I. PT VOIDING CLEAR YELLOW URINE PER URINAL. BP 93/52, HR 94. PT DENIES PAIN OR DISCOMFORT. REFUSES TO TURN FROM SIDE TO SIDE. SCROTAL EDEMA NOTED. GENERALIZED EDEMA. BED ALARM ON FOR SAFETY. PT APPEARS TO BE SLEEPING ON HOURLY ROUNDS.
[2020-04-28 05:28] LABS: ALBUMIN 1.9 g/dL (3.4-5.0); CALCIUM 8.8 mg/dL (8.5-10.1); CREATININE 2.1 mg/dL (0.7-1.3); PHOSPHORUS 3.8 mg/dL (2.5-4.9); POTASSIUM 5.2 mmol/L (3.5-5.1)
[2020-04-28 08:35] VITALS: BP 92/58
[2020-04-28] MEDS ORDERED: TYLENOL EXTRA500 MG PO (11:49)
[2020-04-28] MEDS ORDERED: MIDODRINE HCL 55 M1 PO (11:49)
[2020-04-28] MEDS ORDERED: VELTASSA8.4 GM PO (11:49)
[2020-04-28] MEDS ORDERED: LACTULOSE20 GM/30 M PO (11:49)
[2020-04-28] MEDS ORDERED: COLACE100 MG PO (11:49)
[2020-04-28] MEDS ORDERED: AMMONIUM LACTA226 GM TOP (11:49)
[2020-04-28] MEDS ORDERED: FUROSEMIDE20 MG/2 ML IV PUSH (11:49)
[2020-04-28] MEDS ORDERED: LIDOPATCH1 EACH TRANSDERM (11:49)
[2020-04-28] MEDS ORDERED: LASIX 10 MG/10 MG/M1 IVPB (11:54)
--- NOTE | 2020-04-28 12:04 | NUR ---
cm notified by copy chief's that pedro going to be transferred back to ccu, for overload vol and low bp. will cont following as needed for dc needs.
--- NOTE | 2020-04-28 13:05 | NUR ---
ASSUMED CARES AT 0700. PT AWAKE, ALERT AND ORIENTED *4. C/O RIGHT HIP PAIN, TYLENOL WAS ADMINISTERED. PT REMAINS HYPOTENSIVE. AT 1100 BP 71/30 AND PT WAS PALE, LETHARGIC AND SLEEPY. ALL OTHER VITALS STABLE. LS COARSE AND DIMINISHED, PT HAS A COUGH. PT CONTINUES TO HAVE BLE, RUE AND SCROTAL EDEMA. ALBUMIN ADMINISTERED VIA LEFT WRIST PIV. HOSPITALIST, NEPHROLOGY AND REHAB SUPERINTENDENT BOARD MILL NOTIFIED OF PT'S CHANGE IN STATUS. PT DC'D TO CCU, REPORT GIVEN TO RECEIVING RN AND CARE TRANSFERED.
--- NOTE | 2020-04-28 13:56 | 2DMMODE ---
[facility] [place] [address] 2 D/M-MODE ECHOCARDIOGRAM Name: SONIYA MONCADA Room #: 512-P DIS IN M.R.#: [id number] Admission: 04/20/20 Attend Phys: Michael Villatoro MD Discharge: 04/28/20 Date of : 44 Report #: [id number] THIS REPORT FOR: cc: [facility] - Clinic physician unknown [facility] - Clinic physician unknown Jacky Menendez MD ~ APPROVED REPORT Study performed: 04/28/2020 13:12:13 EXAM: Comprehensive 2D, Doppler, and color-flow Echocardiogram Patient Location: Bedside Room #: 243 Status: routine BP: 83/52 mmHg Left Ventricle Limited echo study for EF and r/o effusion. Tachycardia. Left ventricle is grossly normal size. There is normal LV segmental wall motion. LVEF is 65%. Pericardium There is no pericardial effusion. <Conclusion> Limited echo study for EF and r/o effusion. Tachycardia. Left ventricle is grossly normal size. LVEF is 65%. There is no pericardial effusion. <ELECTRONICALLY SIGNED> By: Jacky Menendez MD 04/28/20 1356 1356 1356 Jacky Menendez MD /INF
--- NOTE | 2020-04-30 16:58 | HC ---
[facility] [place] [place] [address] CONSULTATION Name: SONIYA MONCADA Room #: 512-P [facility] IN M.R.#: [id number] Admission: 04/20/20 Attend Phys: Michael Villatoro MD Discharge: 04/28/20 Date of : 44 Report #: [id number] THIS REPORT FOR: cc: [facility] - Clinic physician unknown [facility] - Clinic physician unknown Chavez Bond PhD ~ CC: Michael CARMONA unknown DATE OF SERVICE: 04/23/2020 NEUROBEHAVIORAL STATUS EXAM ATTENDING PHYSICIAN: Michael Villatoro MD SUSTAINABILITY DIRECTOR: Chavez Bond, PhD CLINICAL PRESENTATION: The patient is a 80-year-old white male originally admitted to [facility] with generalized weakness, fatigue and shortness of breath. He was diagnosed with atrial fibrillation, rapid ventricular rate and admitted to the ICU. His past medical history is reported to include diabetes mellitus, heart disease, hypertension, renal disease, vascular disease and a history of atrial fibrillation with a history of Watchman. His diagnostic assessment on admission to the rehabilitation unit was medical complexity with generalized debilitation, atrial fibrillation with rapid ventricular rate, hypotension; venous stasis dermatitis with ulcer, left lower extremity; diabetes mellitus type 2 and chronic kidney disease stage 3. A complete description of his medical condition and history along with medications can be found in his medical record. Neuropsychological consultation was requested to provide assistance in the assessment of cognitive and emotional status and to provide recommendations and services. Prior to this most recent admission, the patient was living by himself in his own home. He is , but has had assistance from his ex- before she . The patient has relied on assistance from a neighbor as needed for activities of daily living. 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 He reports having graduated [employer] with a complex commercial litigation paralegal certificate. TECHNIQUES UTILIZED: Clinical interview, review of medical records, staff consultation and behavioral observation, mini mental status exam 2 standard version, clock drawing and verbal fluency assessment. [address] [address] CONSULTATION Name: SONIYA MONCADA TERRENCE Room #: 512-P [facility] IN M.R.#: [id number] Admission: 04/20/20 Attend Phys: Michael Villatoro MD Discharge: 04/28/20 Date of : 44 Report #: [id number] EXAMINATION FINDINGS: The patient was alert and cooperative with the assessment. He did not report auditory or visual hallucinations. There is no evidence of aphasia. He describes difficulty with memory and word finding. Expressive speech is slow suggesting decreased thought organization. Evidence of confabulation was noted. He does not report difficulty with sleep, appetite or anxiety/depression. His performance on the MMSE 2 brief version was within normal limits with a raw score of 14 of 16. The patient was 3 of 3 for initial registration, 5 of 5 for orientation to time and place. He was 1 of 3 for immediate recall of 3 items after a brief time delay and distraction. Performance on the MMSE 2 standard version was 24 of 30, which is a T score of 39 and percentile rank of 14. He was 2 of 5 for serial sevens, 2 of 2 for naming, 1 of 1 for repetition, 3 of 3 for auditory comprehension. He could read and follow a single command and write a sentence. However, the patient had difficulty in copying a simple geometric design. Clock drawing was incorrect for hand placement, suggesting stimulus bound and executive dysfunction. Letter fluency was extremely low with a raw score of 6 and a T score of 23, which is a percentile rank of 1. Category fluency was extremely low with a raw score of 12, T score of 25 and percentile rank of 1. Overall, total verbal fluency was extremely low with a raw score of 18, T score of 24 and percentile rank of 1. The patient is presenting with deficits in immediate recall, sustained concentration and executive functioning as noted by clock drawing and verbal fluency. Decreased thought organization is likely to affect planning and problem solving. DIAGNOSTIC IMPRESSION: Neurocognitive disorder, unspecified, without behavior disturbance, likely in the moderate to severe range primarily in executive functioning. RECOMMENDATIONS: The patient will require increased assistance upon his return home. Suggested is help with the management of medication and nutrition. Followup neuropsychological evaluation will likely be of benefit to clarify the severity of neurocognitive deficits upon stabilization of his acute medical event. Continued speech therapy will be of benefit to assist with compensatory strategies for aspects of executive functioning and memory to assist with planning and problem solving. Impairment in cognition can be a result of vascular disease as well as residual deficits from craniotomy and previous [address] [address] CONSULTATION Name: SONIYA MONCADA Room #: 512-P [facility] IN M.R.#: [id number] Admission: 04/20/20 Attend Phys: Michael Villatoro MD Discharge: 04/28/20 Date of : 44 Report #: [id number] traumatic brain injury. Thank you very much for allowing me to provide the consultation on this patient. <ELECTRONICALLY SIGNED> By: Chavez Bond, PhD 04/30/20 1658 [id number] Chavez Bond, PhD /nt
== END 2020-04-28 12:11 | disposition short-term general hospital (02) | DRG 947 ==
PROVIDERS: Hospitalist; Internal Medicine; Internal Medicine Nephrology; Nurse Practitioner; Nurse Practitioner Family; ADMIT Physical Medicine & Rehabilitation; ATTEND Physical Medicine & Rehabilitation
PROC: 05HY33Z Insertion of Infusion Device into Upper Vein, Percutaneous Approach (ICD-10-PCS; principal; 2020-04-28)
DX: R53.81 Other malaise (principal); I48.21 Permanent atrial fibrillation; E43 Unspecified severe protein-calorie malnutrition; N18.4 Chronic kidney disease, stage 4 (severe); N17.9 Acute kidney failure, unspecified; E44.0 Moderate protein-calorie malnutrition; L97.929 Non-pressure chronic ulcer of unspecified part of left lower leg with unspecified severity; I50.40 Unspecified combined systolic (congestive) and diastolic (congestive) heart failure; I95.9 Hypotension, unspecified; E11.22 Type 2 diabetes mellitus with diabetic chronic kidney disease; I87.8 Other specified disorders of veins; I12.9 Hypertensive chronic kidney disease with stage 1 through stage 4 chronic kidney disease, or unspecified chronic kidney disease; E11.51 Type 2 diabetes mellitus with diabetic peripheral angiopathy without gangrene; K21.9 Gastro-esophageal reflux disease without esophagitis; F32.9 Major depressive disorder, single episode, unspecified; F41.9 Anxiety disorder, unspecified; D63.8 Anemia in other chronic diseases classified elsewhere; D69.6 Thrombocytopenia, unspecified; N40.1 Benign prostatic hyperplasia with lower urinary tract symptoms; R33.8 Other retention of urine; R41.9 Unspecified symptoms and signs involving cognitive functions and awareness; I87.2 Venous insufficiency (chronic) (peripheral); E11.43 Type 2 diabetes mellitus with diabetic autonomic (poly)neuropathy; G89.29 Other chronic pain; M54.5 Low back pain; E87.70 Fluid overload, unspecified; Z68.38 Body mass index [BMI] 38.0-38.9, adult; Z88.0 Allergy status to penicillin; Z88.1 Allergy status to other antibiotic agents; Z88.8 Allergy status to other drugs, medicaments and biological substances; Z79.82 Long term (current) use of aspirin; Z79.899 Other long term (current) drug therapy; Z87.442 Personal history of urinary calculi; Z98.49 Cataract extraction status, unspecified eye; Z86.14 Personal history of Methicillin resistant Staphylococcus aureus infection; Z89.411 Acquired absence of right great toe
CPT/HCPCS: 10112

== ENCOUNTER 2020-04-28 13:24 | Inpatient (IN) | payer OTHER, MEDICARE ==
[~2020-04-28] VITALS: Ht 188 cm; Wt 108.9 kg
[2020-04-28] VITALS (33 sets, daily range): BP systolic 74–127; BP diastolic 40–107
--- NOTE | 2020-04-28 12:00 | NUR ---
RECEIVED PT FROM [facility]. PT IS COMING DOWN DUE TO HYPOTENSION. INITAL BP IS 76/47. PT IS PALE, SLEEPY. TALKED WITH BIMAL NICOLE RISK MANAGEMENT ANALYST ON PTS CASE. SHE STATES PT IS TO GO TO ICU AND CARDIOLOGY WOULD LIKE PT TO BE STARTED ON DOBUTAMINE GTT. TALKED WITH BIMAL AND PHARMACY THAT SINCE I AM AN ICU NURSE THAT WAS FLOATED TODAY IF IT IS OK FOR ME TO START THE GTT TO GET THE BP UP PRIOR TO TRANSFER TO ICU. DOBUTAMINE STARTED @ 2.5 MCG/KG/MIN @ 1240 AFTER IV STARTED TO RIGHT AC. ALBUMIN 25GM FINISHED INFUSING TO LW 20G. DOBUTAMINE GTT INCREASED TO 5MCG/KG/HR @ 1248 DUE TO PRESSURE BEING 75/46. BP IMPROVING WITH RATE CHANGE. REPORT GIVEN TO ICU NURSE. PT TRANSFERRED TO BED 243 IN ICU @ 1325.
[~2020-04-28 13:24] MED LIST changes: +AMMONIUM LACTA226 GM TOP; +FUROSEMIDE20 MG/2 ML IV PUSH; +LACTULOSE20 GM/30 M PO; +LASIX 10 MG/10 MG/M1 IVPB; +LIDOPATCH1 EACH TRANSDERM; +MIDODRINE HCL 55 M1 PO; +TYLENOL EXTRA500 MG PO; +VELTASSA8.4 GM PO
--- NOTE | 2020-04-28 15:14 | EKG ---
[facility] [place] [address] ELECTROCARDIOGRAM REPORT Name: SONIYA MONCADA Room #: 243-P ADM IN M.R.#: [id number] Admission: 04/28/20 Attend Phys: Abeba Yanez Discharge: Date of : 44 Report #: [id number] THIS REPORT FOR: cc: [facility] - Clinic physician unknown [facility] - Clinic physician unknown Jacky Menendez MD ~ THIS REPORT FOR: //name// [facility] Test Date: 2020-04-28 Test Time: 14:23:23 Pat Name: SONIYA MONCADA Department: Room: 243 P Gender: M Trestleman: Alexander MURILLO : 1940 Requested By: Catherine Holley Order Number: [id number] MD: Jacky Menendez Measurements Intervals [place] Rate: 150 P: 0 NC: QRS: 6 QRSD: 68 T: 262 QT: 374 QTc: 591 Interpretive Statements Regular supraventricular tachycardia low voltage, extremity leads Poor with progression nonspecific ST-T wave change Compared to ECG 04/27/2020 07:27:28 Atrial fibrillation no longer obvious Electronically Signed On 04-28-2020 15:14:04 CDT by Jacky Menendez [email or web address] <ELECTRONICALLY SIGNED> By: Jacky Menendez MD 04/28/20 1514 1423 1423 Jacky Menendez MD /EPI
--- NOTE | 2020-04-28 15:36 | NUR ---
CONSULTED TO PLACE A CENTRAL LINE FOR A PATIENT NEEDING ACCESS FOR PRESSORS. ORDER AND CONSENT NOTED, THE PROCEDURE WELL BENIFITS AND RISKS FOR DVT AND INFECTION, BLEEDING DISCUSSED WITH THE PATIENT AND HE VERBALIZED UNDERSTANDING. A RIGHT JUGULAR VEIN WAS WIDLEY PATENT. A #6 F TRIPLE LUMEN CENTRAL LINE WAS PLACED PER HOSPITAL POLICY AFTER A BEDSIDE TIMEOUT WAS COMPLETE. LINE 25CM ADVANCED WITHOUT DIFFICULTY. A STAT CHEST XRAY WAS ORDERED FOR PLACEMENT .
--- NOTE | 2020-04-28 19:16 | NUR ---
PATIENT ON VENT/SEDATED THIS AM. PRECEDEX TURNED OFF AND PATIENT AWAKE/FOLLOWING COMMANDS. CPAP TRAIL DONE, POST ABG'S. ORDERS FOR RT TO EXTUBATE PER DR. RAYMOND. PATIENT CHANGED FROM INTUBATION ONLY TO DNR. NG TUBE DISCONTINUED WITH EXTUBATION. PATIENT CURRENTLY NPO. ON VENTI MASK AT 60%. AFTER EXTUBATION PATIENT CONTINUED TO VOICE "I CANT BREATHE" SATS REMAIN GREATER THAN 90% BUT PATIENT BECAME TACHYCARDIC AND TACHYPNIC. VERY RESTLESS. COMMUNICATED TO DR. RAYMOND AND DR. SANZ. PRN MORPHINE GIVEN, WELL PRN DILUADID. DAUGHTER HERE TO HAVE CONVERSATION WITH DR. SANZ ABOUT GOALS OF CARE. REPORT GIVEN TO ENVIRONMENTAL ADVISER RN.
--- NOTE | 2020-04-28 20:27 | NUR ---
PT TRANSFERED FROM TO BE PLACED ON DOPAMINE GTT. STARTED ON GTT PER CARDIOLOGY AND PATIENT BECAME TACHYCARDIC. EKG DONE, SPOKE WITH DR. GRIFFITH. ORDERS TO CHANGE TO ARCADIO GTT FOR HYPOTENSION. CENTRAL LINE PLACED BY IV NURSE. PATIENT VOIDING PER URINAL BUT HAVING DIFFICULTIES WITH HESITATION AND PAIN DUE TO SEVERE SCROTAL EDEMA. ORDERS TO PLACE DUKE, PATIENT WILL BE STARTED ON LASIX GTT. TRANSPORTED TO RADIOLOGY FOR CT OF CHEST.
--- NOTE | 2020-04-28 20:29 | NUR ---
WOUND ADMISSION PICTURES TO BE COMPLETED BY BOX CHIPPER RN
[2020-04-29] VITALS (97 sets, daily range): BP systolic 64–217; BP diastolic 16–191
[2020-04-29 05:07] LABS: CALCIUM 8.6 mg/dL (8.5-10.1); CREATININE 1.8 mg/dL (0.7-1.3); MAGNESIUM 1.9 mg/dL (1.8-2.4); POTASSIUM 4.7 mmol/L (3.5-5.1)
[2020-04-29 05:17] LABS: HEMATOCRIT 31.2 % (42.0-52.0); HEMOGLOBIN 10.5 gm/dL (14.0-18.0); MCH 31.3 pg (26.0-34.0); MCHC 33.6 g/dL (28.0-37.0); MCV 93.1 fL (80.0-100.0); RBC 3.35 mil/uL (4.50-6.00); RDW 18.1 % (10.5-14.5); WBC 4.3 thou/uL (4.0-11.0)
--- NOTE | 2020-04-29 06:28 | NUR ---
Report received. Patient remains A/O. Denies SOA, N/V. C/O neck pain. Medications given as ordered. Remains on Monster and lasix gtt. Mullins place with good urine out put. Wound dressing change and pictures done. Afebrile. Hypotensive otherwise vss. Repositioned q2h. Denies needs. Will keep monitoring.
--- NOTE | 2020-04-29 09:30 | NUR ---
chart review. pedro transferred to icu yesterday rt low bp and fluid overload. cm unable to visit with him rt conserving on ppe, he unable to speak on phone rt resting. cm had visited with him while he was up on acute rehab. cm visited with man don via phone call. no question or concerns. education on dcp. pt lives at home alone prior to hospital. he was manage own medication at home. was not driving any longer. were looking into skilled rehab after acute rehab. [facility] when medically stable and [facility] was still review and was pedro 1st choice. no anticpated dc over the weekend, will cont following as needed for dc needs.
[2020-04-29 11:19] LABS: PROT/CREAT RATIO 0.5; URINE CREATININE-RANDOM* <13 mg/dL; URINE PROTEIN-RANDOM* 6.2 mg/dL (<11.9)
--- NOTE | 2020-04-29 19:03 | NUR ---
PATIENT REMAINS ON ROOM AIR, A/O X 4; MOVING ALL EXTREMITIES SPONTANEOUSLY; CONT TO REQUIRE PHENYLEPHRINE FOR BP MANAGEMENT.
[2020-04-30] VITALS (90 sets, daily range): BP systolic 70–134; BP diastolic 36–109
--- NOTE | 2020-04-30 03:33 | NUR ---
Remains A/O. Denies DARNELL FORRESTER. C/O pain. Pains meds given as ordered. Afebrile. Hypotensive otherwise VSS. On Monster and lasix gtt. Bath given. Mullins in place with good U/O. Denies needs. Will keep monitoring.
[2020-04-30 05:07] LABS: HEMATOCRIT 31.7 % (42.0-52.0); HEMOGLOBIN 10.8 gm/dL (14.0-18.0); MCH 31.5 pg (26.0-34.0); MCHC 34.1 g/dL (28.0-37.0); MCV 92.3 fL (80.0-100.0); RBC 3.43 mil/uL (4.50-6.00); RDW 17.9 % (10.5-14.5); WBC 5.3 thou/uL (4.0-11.0)
[2020-04-30 05:28] LABS: ALBUMIN 2.1 g/dL (3.4-5.0); CALCIUM 8.6 mg/dL (8.5-10.1); CREATININE 1.9 mg/dL (0.7-1.3); PHOSPHORUS 3.7 mg/dL (2.5-4.9); POTASSIUM 4.5 mmol/L (3.5-5.1)
--- NOTE | 2020-04-30 16:37 | NUR ---
ASSESSMENT CHARTED - MEDS PER MAR - NO CO'S OF PAIN OR NASUEA. LANIE ONLY SMALL AMOUNT OF DIET. ACCUCHECKS WITH NO COVERAGE REQUIRED. DRESSING TO BILATERAL LOWER LEGS COMPLETED PER INSTRUCTIONS IN DR Flores PROGRESS NOTE - SCROTUM WITH SWELLING PRESENT. DUKE WITH CLEAR YELLOW UNIRE. NO CO'S AT THE PRESENT TIME BP CHARTED ARCADIO HAS SSTAYED AT 100MCS THIS SHIFT. LASIX CONTINUE AT 5 MGS. PT RESTING COMFORTABLY AT THE PRESENT TIME.
--- NOTE | 2020-04-30 19:57 | NUR ---
1900-RECEIVED REPORT FROM KEYSHAWN COLINDRES. ASSUMED PATIENT CARE AT THIS TIME.
[2020-05-01] VITALS (68 sets, daily range): BP systolic 83–115; BP diastolic 40–78
[2020-05-01 05:17] LABS: CALCIUM 8.5 mg/dL (8.5-10.1); CREATININE 2.1 mg/dL (0.7-1.3); PHOSPHORUS 3.6 mg/dL (2.5-4.9); POTASSIUM 4.3 mmol/L (3.5-5.1)
[2020-05-01 05:33] LABS: HEMATOCRIT 31.1 % (42.0-52.0); HEMOGLOBIN 10.6 gm/dL (14.0-18.0); MCH 31.3 pg (26.0-34.0); RBC 3.38 mil/uL (4.50-6.00); WBC 4.7 thou/uL (4.0-11.0)
--- NOTE | 2020-05-01 09:12 | NUR ---
PT REFUSING MEDS/BREAKFAST AT THIS TIME. STATES HE JUST WANTS TO SLEEP
--- NOTE | 2020-05-01 13:17 | HC ---
[facility] [place] [address] CONSULTATION Name: SONIYA MONCADA Room #: 243-P ADM IN M.R.#: [id number] Admission: 04/28/20 Attend Phys: Abeba Yanez Discharge: Date of : 44 Report #: [id number] THIS REPORT FOR: cc: [facility] - Clinic physician unknown [facility] - Clinic physician unknown Marquise Simon MD ~ CC: KRISTINE unknown Abeba Yanez DATE OF SERVICE: 04/30/2020 ENDOCRINE CONSULTATION NOTE CONSULTING PHYSICIAN: Dr. Yanez. REASON FOR CONSULTATION: Hypotension, suspected adrenal insufficiency. HISTORY OF PRESENT ILLNESS: This is a 80-year-old male patient whose medical background is significant for chronic kidney disease, hypertension, peripheral vascular disease as well as atrial fibrillation. He was admitted due to hypotension, generalized weakness and fatigue. This happened without a specific occurrence of fever, chills, nausea, vomiting or diego loss of consciousness. Recently, the patient was admitted to [facility] on 04/15/2020 with complaints of shortness of breath in the setting of AFib with RVR and had undergone rehabilitative efforts at the acute inpatient rehab unit on 04/21/2020. The patient seems to have had issues in the past in relation to fluid overload and occurrences of hypotension. The patient does not describe any significant skin changes including discoloration or rash, he does not have chronic issues with abdominal pain, nausea or vomiting. He does not believe that he has been treated with glucocorticoids for any specific length of time in the past. REVIEW OF SYSTEMS: CONSTITUTIONAL: Fatigue, tiredness. No fever, chills or body weight changes. HEENT: Negative for sore throat, sinus pain or ear drainage. PULMONARY: Occasional shortness of breath, mostly dyspnea on exertion without cough or hemoptysis. CARDIAC: Recent history of atrial fibrillation. The patient has bouts of lightheadedness. No chest pain or palpitations. GASTROINTESTINAL: Negative for nausea, vomiting, abdominal pain or change in bowel frequency. NEUROLOGY: Negative for loss of consciousness, seizure activity. DERMATOLOGY: Negative for rash, ulceration or skin pigmentation. Otherwise, his review of systems is noncontributory other than those mentioned in HPI. [facility] [address] [place] [address] CONSULTATION Name: SONIYA MONCADA DIEGO Room #: 243-P [facility] IN .R.#: [id number] Admission: 04/28/20 Attend Phys: Abeba Yanez Discharge: Date of : 44 Report #: [id number] PAST MEDICAL HISTORY: Noted for benign prostatic hypertrophy, atrial fibrillation, chronic kidney disease, hypotension, osteoarthritis, nephrolithiasis, type 2 diabetes mellitus, hypertension, peripheral vascular disease, peripheral neuropathy, GERD, depression, anxiety, chronic low back pain, history of cataract surgery, history of congestive heart failure. OUTPATIENT MEDICATIONS: Include Plavix 75 mg daily, omeprazole 20 mg daily, gabapentin 100 mg t.i.d., pioglitazone 30 mg daily, Proscar 5 mg daily, multivitamin daily, ferrous sulfate 325 mg b.i.d., aspirin 81 mg daily, Flomax 0.4 mg daily, Tylenol 500 mg as needed, midodrine 10 mg t.i.d. ALLERGIES: HE IS ALLERGIC TO BACITRACIN, DIAZEPAM, NEOMYCIN, PENICILLINS, POLYMYXIN B, AND TETANUS IMMUNE GLOBULIN. FAMILY HISTORY: Noncontributory. SOCIAL HISTORY: The patient lives alone. Denies use of tobacco and has not had alcohol in over 50 years. PHYSICAL EXAMINATION: GENERAL: Pleasant male patient who is not in apparent pain or distress. VITAL SIGNS: Blood pressure is 117/56 with pressor support, respiration rate 16 per minute, temperature 36.3 degrees Celsius. CONSTITUTIONAL: The patient is sitting upright in bed, eating lunch. He appears comfortable, not in apparent distress. HEENT: Anicteric sclerae. Intact extraocular motions. NECK: Supple, without thyromegaly. CHEST: Noted for moderate entry bilaterally with scattered rales, but not wheezes or crackles. HEART: Regular rate and rhythm without murmurs or gallops. ABDOMEN: Soft, lax. No guarding. Active bowel sounds. EXTREMITIES: Lower extremity exam is noted for ankle edema with stasis dermatitis. NEUROLOGIC: Awake, alert and oriented to time, place and person. The remainder of his examination is noted for spontaneous limb movement. PSYCHIATRIC: Pleasant, interactive. Normal mood and affect. Normal thought process. LABORATORY RESULTS: Blood glucose values have ranged between 88 and 110 mg/dL. Sodium 130; however, his baseline is solid around 140, potassium 4.5, chloride 100, CO2 of 22, anion gap 8, BUN 40, creatinine 1.9, AST 50, total bilirubin 0.7, calcium 8.6, phosphorus 3.7, magnesium 1.8, alkaline phosphatase 63, ALT 55, total protein 6.5, albumin 2.1, EGFR 34. BNP 1512. Troponin is negative. INR 1.3. White blood count 5.3, hemoglobin 10.8, hematocrit 31.7, platelets [facility] [address] [place] [address] CONSULTATION Name: SONIYA MONCADA Room #: 243-P [facility] IN M.R.#: [id number] Admission: 04/28/20 Attend Phys: Abeba Yanez Discharge: Date of : 44 Report #: [id number] 141. TSH 4.511. Hemoglobin A1c 5.3 on 04/15/2020. Random cortisol is at 18.1. ASSESSMENT AND PLAN: 1. Hypotension. While the presentation of hypotension should certainly invoke a consideration of adrenal insufficiency, the patient's chronic electrolyte pattern as well as his random cortisol of 18.1 collectively rules out the possibility of adrenal insufficiency with a fair amount of confidence. That said, I do not propose further workup for this possibility at this point in time. I am aware that the patient is currently on pressor support and that further care is underway to manage his volume state as well as the issue of atrial fibrillation. I will defer further input on this issue to the Cardiology and Nephrology services. 2. Type 2 diabetes mellitus. Although the patient has the label of type 2 diabetes mellitus in his medical records, his blood glucose control has been excellent without virtually any active antidiabetic regimen. It appears that the patient might have received pioglitazone in the past. If there is any suspicion of cardiomyopathy, congestive heart failure, which his BNP supports, then I would refrain from using pioglitazone in the future and revert to more cardiac safe options, i.e., linagliptin or other renally dosed DPP-4 inhibitors. In the immediate setting, continue to monitor blood glucose values a.c. and at bedtime and utilizes a customized low intensity insulin scale using Humalog insulin to start dosing only if his blood glucose is over 200 mg/dL. 3. Hypothyroidism. The patient had a slightly elevated TSH. I will try to assess this further by obtaining free T4 levels as well as thyroid peroxidase antibody levels, so as to determine whether this would be best monitored or actively treated. I have reviewed the patient's clinical care notes, laboratory data and other pertinent clinical information past and present for over 35 minutes in addition to my interview time with him. I certainly appreciate this consultation by Dr. aYnez. <ELECTRONICALLY SIGNED> By: Marquise Simon MD 05/01/20 1317 [id number] [id number] Marquise Simon MD /nt
--- NOTE | 2020-05-01 19:31 | NUR ---
1900-RECEIVED PATIENT REPORT FROM PIERRE COLINDRES. ASSUMED PATIENT CARE AT THIS TIME.
[2020-05-02] VITALS (81 sets, daily range): BP systolic 60–127; BP diastolic 24–85
[2020-05-02 04:17] LABS: CALCIUM 8.6 mg/dL (8.5-10.1); CREATININE 1.8 mg/dL (0.7-1.3); PHOSPHORUS 3.6 mg/dL (2.5-4.9); POTASSIUM 4.1 mmol/L (3.5-5.1)
[2020-05-02 04:30] LABS: HEMATOCRIT 31.9 % (42.0-52.0); HEMOGLOBIN 10.8 gm/dL (14.0-18.0); MCHC 33.9 g/dL (28.0-37.0); MCV 91.5 fL (80.0-100.0); RBC 3.49 mil/uL (4.50-6.00); RDW 17.6 % (10.5-14.5); WBC 4.1 thou/uL (4.0-11.0)
--- NOTE | 2020-05-02 19:15 | NUR ---
Pt awake after afternoon nap. Pt has limited foods that he likes and poor appetite. Provided with pudding. DId not eat any of lunch or dinner tray. Complete bath and wound care done. Tires easily and becomes tachycardic with exertion. Report given to RN assuming care.
[2020-05-03] VITALS (79 sets, daily range): BP systolic 71–131; BP diastolic 21–74
[2020-05-03 05:00] LABS: ALBUMIN 1.9 g/dL (3.4-5.0); CALCIUM 8.3 mg/dL (8.5-10.1); CREATININE 1.8 mg/dL (0.7-1.3); PHOSPHORUS 3.5 mg/dL (2.5-4.9)
--- NOTE | 2020-05-03 08:39 | EKG ---
[facility] [place] [address] ELECTROCARDIOGRAM REPORT Name: SONIYA MONCADA Room #: 243-P ADM IN M.R.#: [id number] Admission: 04/28/20 Attend Phys: Abeba Yanez Discharge: Date of : 44 Report #: [id number] THIS REPORT FOR: cc: [facility] - Clinic physician unknown [facility] - Clinic physician unknown Kuldeep Cavazos MD [facility] THIS REPORT FOR: //name// [facility] Test Date: 2020-05-03 Test Time: 08:02:02 Pat Name: SONIYA MONCADA Department: Room: 243 P Gender: M School Resource Officer: APRIL : 1940 Requested By: Kuldeep Cavazos Order Number: [id number] MD: Kuldeep Cavazos Measurements Intervals [place] Rate: 120 P: LA: QRS: 30 QRSD: 97 T: 147 QT: 395 QTc: 559 Interpretive Statements Atrial fibrillation Poor R wave progression Nonspecific T wave abnormality Prolonged QT interval No previous ECGs available for comparison Electronically Signed On 05-03-2020 8:39:11 CDT by Kuldeep Cavazos [email or web address] <ELECTRONICALLY SIGNED> By: Kuldeep Cavazos MD, FAC 05/03/20 0839 08 08 Kuldeep Cavazos MD, [facility] /EPI
--- NOTE | 2020-05-03 10:58 | NUR ---
Recommend an order for a MVI. Pt does not eat meat or vegetables and has very limited food preferences.
--- NOTE | 2020-05-03 13:53 | NUR ---
ON-GOING ASSESSMENT: CM REVIEWED CHART. PT REMAIN ON LASIX GTT. PLANS ARE FOR PATIENT TO LIKELY GO TO SNF ONCE MORE STABLE. [facility] PT AND CAN ACCEPT WHEN MEDICALLY STABLE IF PT IS AGREEABLE. CM REACHED OUT TO PATIENTS FIRST CHOICE SNF [facility] AND THEY REPORT THAT THEY LIKELY WILL NOT BE ABLE TO ACCEPT PT THEY THINK HE MAY NEED TO TRANSITION TO LTC AFTER SNF. THEY REPORT IF PATIENT DOES INDEED NEED TO TRANISITION TO LTC AFTER SNF HE WOULD HAVE TO BE ABLE TO PRIVATELY PAY FOR LTC IF HE WAS AGREEABLE. [facility] CAN ACCEPT PATIENT FOR SNF AND STATE THAT THE NEGATIVE COVID TEST FROM 04/16 IS ALL THEY NEED UNLESS PATIENT WAS HAVING ANY NEW SYMPTOMS. CM ATTEMPTED TO REACH DELGADO BUT LEFT A VM AT THIS TIME. CM WILL CONTINUE TO FOLLOW.
--- NOTE | 2020-05-03 16:11 | NUR ---
RECIEVED REPORT FROM JENS ECHEVERRIA AT 1215. SUPINE IN BED ON MONITOR, AFIB. NEOSYNEPHRINE DRIP AT 25 MCG/HR. ATTEMPT TO WEAN OFF DRIP UNSUCCESSFUL, BACK UP TO 50 MCG AT 1240 FOR MAP CONSISTENTLY < 60. LASIX DRIP CONTINUES AT 5MG/HR. SMALL DK GREEN FORMED BM TODAY. AFEBRILE. SEEN BY WOUND CARE TODAY
[2020-05-04] VITALS (60 sets, daily range): BP systolic 86–128; BP diastolic 41–105
--- NOTE | 2020-05-04 04:51 | NUR ---
REPORT RECEIVED. PATIENT IS A/O. DENIES SOA, PAIN, N/V. AFEBRILE. AFIB. ON ARCADIO AND LASIX GTT. TRIED TO TITRATE ARCAIDO OFF BUT GOT HYPOTENSIVE. BP STABLE AT 50MCG. DUKE IN PLACE WITH GOOD U/O. REFUSES TO BE REPOSITIONED. EXPLAINED TO PT IMPORTANCE OF REPOSITIONING Q2H. MIDIUM BM THIS TOD. DENIES NEEDS. WILL KEEP MONITORING.
[2020-05-04 05:05] LABS: ALBUMIN 1.9 g/dL (3.4-5.0); CALCIUM 8.6 mg/dL (8.5-10.1); CREATININE 2.2 mg/dL (0.7-1.3); PHOSPHORUS 3.1 mg/dL (2.5-4.9); POTASSIUM 3.9 mmol/L (3.5-5.1)
--- NOTE | 2020-05-04 18:37 | NUR ---
RN HAS ASSUMED PT'S CARE AT 0700AM , PT IS A&OX3, BUT PT FELL TIRED, AND SLEEPING , PT IS CONTINUING IV LASIX AT 5MG /HR FOR GENERAL EDEMA,PT IS ON PHENYLEPHRINE TITRATED AT 50MCG/MIN TO KEEP PT'S MAP >60 , PT'S VS AND O2SAT ARE STABLE, PT HAS 1900ML URINE AT DAY SHIFT , RN HAS REPORTED TO DR ABOUT PT'S POOR EATING AT MAEL TIME, PT DENIES PAIN AND SOB AT THIS TIME.PT'S WOUND CARE HAS DONE.
[2020-05-05] VITALS (36 sets, daily range): BP systolic 77–113; BP diastolic 33–62
[2020-05-05 03:32] LABS: HEMATOCRIT 31.9 % (42.0-52.0); HEMOGLOBIN 10.8 gm/dL (14.0-18.0); MCH 31.1 pg (26.0-34.0); MCHC 33.8 g/dL (28.0-37.0); RBC 3.47 mil/uL (4.50-6.00); RDW 17.4 % (10.5-14.5); WBC 6.9 thou/uL (4.0-11.0)
[2020-05-05 03:48] LABS: ALBUMIN 1.8 g/dL (3.4-5.0); CALCIUM 8.5 mg/dL (8.5-10.1); CREATININE 2.2 mg/dL (0.7-1.3); PHOSPHORUS 2.9 mg/dL (2.5-4.9); POTASSIUM 3.8 mmol/L (3.5-5.1)
--- NOTE | 2020-05-05 04:30 | NUR ---
ASSESSMENT: PT REMAIN ALERT AND ORIENT TIMES THREE. DENIES PAIN DOES C/O DISCOMFORT IN LOWER ABD R/T BEING TURNED. DOES OCCASSIONALLY REFUSED TO BE REPOSITIONED. RIGHT IJ TL INTACT, PATENT AND DRAWS BLOOD. VSS, AFEBRILE. DUKE PATENT WITH 1300 UO. NO BM THIS SHIFT. XEROFOAM APPLIED TO SACRAL WOUND. AFIB PER MONITOR. PT DID EAT ALL OF HIS MASHED POTATOES/GRAVY AND 30% OF A FRUIT CUP. PT HAS A POOR APPETITE. PT INFORMED THIS RN THAT HE ONLY LIKE TO EAT "HOT POCKETS" MOST OF THE TIMES, OTHERWISE HE JUST DOES NOT HAVE A TASTE FOR MUCH OF ANYTHING ELSE. PT STATE THAT HE FEELS BETTER THAT SOME OF THE SWELLING HAS GONE DOWN. SLOW PROGRESS TOWARDS DC GOALS., WILL CONTINUE TO MONITOR.
--- NOTE | 2020-05-05 09:22 | NUR ---
ASSUMED CARE AT 0700, ASSESSMENT AND VITAL SIGNS COMPLETED PER ICU PROTOCOL. DR. AMAYA ROUNDED THIS AM, PLAN OF CARE DISCUSSED. RN WILL CONTINUE TO MONITOR.
[2020-05-06] VITALS (52 sets, daily range): BP systolic 71–125; BP diastolic 37–81
[2020-05-06 04:56] LABS: HEMATOCRIT 31.4 % (42.0-52.0); HEMOGLOBIN 10.5 gm/dL (14.0-18.0); MCH 30.8 pg (26.0-34.0); MCHC 33.4 g/dL (28.0-37.0); MCV 92.1 fL (80.0-100.0); RBC 3.41 mil/uL (4.50-6.00); RDW 17.3 % (10.5-14.5); WBC 5.7 thou/uL (4.0-11.0)
[2020-05-06 05:14] LABS: ALBUMIN 1.8 g/dL (3.4-5.0); CALCIUM 8.8 mg/dL (8.5-10.1); CREATININE 1.9 mg/dL (0.7-1.3); PHOSPHORUS 3.3 mg/dL (2.5-4.9); POTASSIUM 3.8 mmol/L (3.5-5.1)
--- NOTE | 2020-05-06 05:15 | NUR ---
PT MAKING PROGRESS TOWARDS GOALS. ON ARCADIO GTT AT 35 MCG/MIN UPON INITIAL ASSESSMENT. TITRATED DOWN TO 20 MCG/MIN AT THIS TIME KEEP SBP GREATER THAN 60 THROUGHOUT THE NIGHT. UOP VIA DUKE 1450. VERY LITTLE PO INTAKE, PT COOPERATIVE WITH MINIMAL PO INTAKE.
--- NOTE | 2020-05-06 15:20 | NUR ---
PT A/OX4, PT REFUSES Q2H TURNS, EDUCATED PT ON CURRENT PRESSURE ULCER AND THE IMPORTANCE OF TURNING. R IJ DRSSING CHANGED BY IV TEAM, PT COMPLAINED OF BURNING, SKIN APPEARS REDDENED, COOL WASHCLOTH IN PLASTIC BAG APPLIED. PT REPORTS IT "FEELS BETTER". PT REMAINS OF LASIX AND NEOSYN GTT-TOLERATING SLOW TITRATION OF ARCADIO GTT.
--- NOTE | 2020-05-06 16:47 | NUR ---
JERMAN reviewed chart and spoke with nursing and attending physician. Pt is on IV lasix and remains in ICU. No weekend discharge planned. Pt may be ready for discharge early next week. Per chart, pt has been accepted to [facility]. kit planner to fax updates today for review. JERMAN met with pt at bedside to discuss discharge plan. Pt states he is not sure if he would like to go to a skilled upon discharge. Pt states he would prefer to go home with and possible private duty. Pt said he is concerned about the house next door to him, that he manages. JERMAN left voice message for pt's friend/DPOA, , to provide update. JERMAN is following to assist as needed with discharge planning.
[2020-05-07] VITALS (57 sets, daily range): BP systolic 87–126; BP diastolic 44–86
[2020-05-07 06:44] LABS: ALBUMIN 1.8 g/dL (3.4-5.0); CALCIUM 9.1 mg/dL (8.5-10.1); CREATININE 1.8 mg/dL (0.7-1.3); POTASSIUM 3.8 mmol/L (3.5-5.1)
--- NOTE | 2020-05-07 14:29 | NUR ---
ASSUMED CARE AT SHIFT CHANGE, ALERT AND ORIENTED, VSS AND AFIB ON THE MONITOR, PATIENT REFUSED Q2 TURNS AND WOUNDCARE. POOR APPETITE, AND ATE 10% OF HIS LUNCH. AND WILL CONTINUE WITH POC.
[2020-05-08] VITALS (49 sets, daily range): BP systolic 83–186; BP diastolic 33–157
--- NOTE | 2020-05-08 04:44 | NUR ---
PATIENT SLEPT WELL. REFUSING TO BE TURNED AT NIGHT. REFUSED BATH THIS MORNING.STATES HE HAD ONE ON .
[2020-05-08 05:49] LABS: HEMATOCRIT 29.6 % (42.0-52.0); HEMOGLOBIN 9.8 gm/dL (14.0-18.0); MCH 30.9 pg (26.0-34.0); MCHC 33.2 g/dL (28.0-37.0); MCV 93.1 fL (80.0-100.0); RBC 3.18 mil/uL (4.50-6.00); RDW 17.2 % (10.5-14.5); WBC 5.3 thou/uL (4.0-11.0)
[2020-05-08 06:12] LABS: ALBUMIN 1.6 g/dL (3.4-5.0); CALCIUM 8.8 mg/dL (8.5-10.1); CREATININE 2.2 mg/dL (0.7-1.3); PHOSPHORUS 3.4 mg/dL (2.5-4.9); POTASSIUM 3.9 mmol/L (3.5-5.1)
--- NOTE | 2020-05-08 20:04 | NUR ---
PT NOT MOVING TOWARDS GOALS IN REGARDS TO BP, UNABLE TO WEAN NEOSYNEPHRINE. PT IS DIURESING. APPITITE MUCH BETTER.
[2020-05-09] VITALS (34 sets, daily range): BP systolic 73–126; BP diastolic 41–66
--- NOTE | 2020-05-09 06:00 | NUR ---
PT AWAKE AND ALERT. BATHED. SBP 107/60 MAP 77 ARCADIO GTT TITRATED OFF. LASIX GTT AT 5 MG. 400 CC UO THIS SHIFT. COCCYX AND LEG DRESSINGS DRY AND INTACT. PT DOES NOT LIKE TO TURN. JUST WANTS TO BE LEFT ALONE. POSSIBLY WILL TX TO FLOOR TODAY IF MAP CONT TO BE > 60. HAD A SMALL AMT OF DARK GREEN SOFT STOOL THIS AM. WILL CONT TO MONITOR.
[2020-05-09 08:21] LABS: ALBUMIN 1.8 g/dL (3.4-5.0); CREATININE 1.9 mg/dL (0.7-1.3); PHOSPHORUS 3.2 mg/dL (2.5-4.9); POTASSIUM 3.9 mmol/L (3.5-5.1)
--- NOTE | 2020-05-09 08:24 | NUR ---
PT AOX4, REFUSING TURN, STATES HE FEELS MUCH BETTER TODAY, ARCADIO GTT OFF SINCE 0600, MAP CURRENTLY 80. LASIX GTT JUST DC'D BY DR CHAMBERS, PT NOW SALINE LOCKED.
--- NOTE | 2020-05-09 08:56 | NUR ---
PT REFUSING LIDOCAINE PATCHES, TYLENOL AND COLACE THIS MORNING, STATES HE HAS NO PAIN AND WANTS TO WAIT ON STOOL SOFTENER.
--- NOTE | 2020-05-09 09:25 | NUR ---
SPOKE WITH DR ROMERO ABOUT UPDATE ON PT CONDITION, HE AGREES PT CAN GO TO CCU.
--- NOTE | 2020-05-09 14:34 | NUR ---
chart review. pt possible will be changed to oral diuretics. [facility] able to accept if needed for dc skilled. possible will move out of icu to ccu today. cm called [facility] neighbor florencia, no answer and cm requested call back. will cont following as needed for dc needs.
--- NOTE | 2020-05-09 16:42 | NUR ---
RECEIVED CALL FROM BERNARDA IN ADM AT [facility] SHE WAS REQUESTING A UPDATE PT WAS TO DC FROM [facility] TO THEIR FACILITY. FAXED UPDATE RECEIVED CONFIRMATION. BERNARDA SAID THEY WILL NEED TO RE-EVAL WHEN PT READY TO DISCHARGE. DP TO FOLLOW.
--- NOTE | 2020-05-09 18:44 | NUR ---
pt transferred to room 218, report given to jen sibley, all belongings sent [facility] pt
--- NOTE | 2020-05-10 03:25 | NUR ---
CARE ASSUMED 1900. PT ALERT AND ORIENTED. VITALS STABLE. DENIES PAIN. PT REFUSED MOST OF HIS EVENING MEDICATIONS LAST NIGHT. TURNS PER PATIENT REQUEST. CATHETER PATENT AND INTACT. DENIES CHEST PAIN, NAUSEA AND VOMITING. WILL CONTINUE TO MONITOR
[2020-05-10 04:45] VITALS: BP 114/76
[2020-05-10 05:45] LABS: ALBUMIN 1.8 g/dL (3.4-5.0); CALCIUM 9.1 mg/dL (8.5-10.1); PHOSPHORUS 3.4 mg/dL (2.5-4.9); POTASSIUM 3.9 mmol/L (3.5-5.1)
[2020-05-10 07:00] VITALS: BP 114/55
[2020-05-10 12:00] VITALS: BP 117/77
--- NOTE | 2020-05-10 15:52 | NUR ---
met with patient who transferred to CCU from ICU. Therapy evals ordered. Sp with patient. alerted [facility] is accepting of patient. Patient agreeable but has no information regarding facility. Brought brochure. Sp with who is out of town to alert of discharge tomoorow he is in agreement.
[2020-05-10 16:30] VITALS: BP 103/56
--- NOTE | 2020-05-10 16:47 | NUR ---
assessment as charted - meds as per melvina ahmadi diet and fluids - no co's of pain or nasuea. accuchecks as charted - dressings completed to lower legs bilat as ordered. legs continue to heal. pt seen by phys and occ therapy this shift. pt turned as he would allow. avelar remains insitu. no co's at the present time.
[2020-05-10 20:30] VITALS: BP 106/51
[2020-05-11 04:45] VITALS: BP 128/76
[2020-05-11 05:49] LABS: HEMATOCRIT 30.5 % (42.0-52.0); MCH 30.8 pg (26.0-34.0); MCHC 32.8 g/dL (28.0-37.0); MCV 93.8 fL (80.0-100.0); RBC 3.25 mil/uL (4.50-6.00); RDW 17.2 % (10.5-14.5); WBC 5.7 thou/uL (4.0-11.0)
--- NOTE | 2020-05-11 06:03 | NUR ---
PT ALERT AND ORIENTED. VSS. HR MILDRED INTO LOW 30s WHEN ASLEEP. PT REMAINS ASYMPTOMATIC. DENIES CHEST PAIN, NAUSEA OR VOMITING. WILL CONTINUE TO MONITOR.
[2020-05-11 06:27] LABS: ALBUMIN 1.7 g/dL (3.4-5.0); CALCIUM 8.7 mg/dL (8.5-10.1); CREATININE 2.5 mg/dL (0.7-1.3); PHOSPHORUS 3.1 mg/dL (2.5-4.9); POTASSIUM 3.9 mmol/L (3.5-5.1)
[2020-05-11 09:26] VITALS: BP 96/50
[2020-05-11] MEDS ORDERED: DIGOXIN250 MCG PO (10:11)
--- NOTE | 2020-05-11 11:48 | NUR ---
PT DISCHARGING TODAY TO [facility] FOR SKILLED STAY FAXED DC ORDERS/SUMMARY TO FACILITY SPOKE WITH LISA IN ADM SHE RECEIVED ORDERS AND ARRANGED TRANSPORT BY [facility] FOR [id number] TODAY. LEFT MSG WITH PT'S DPOA OF DC AND TIME OF TRANSPORT. UNIT NOTIFIED AND CHART COPY PER US. RN TO CALL REPORT TO [phone].
[2020-05-11 12:50] VITALS: BP 93/53
--- NOTE | 2020-05-11 14:46 | NUR ---
PT CARE ASSUMED APPROX 1000. ASSESSMENT CHARTED. PT DENIES PAIN AND SOA. VSS. REFUSING TURNS. WOUND CARE AND PHOTOS DONE PER ORDER. REPORT CALLED TO RECEIVING FACILITY RN. SHE DENIED QUESTIONS OR CONCERNS REGARDING POC WELL PT. ALL BELONGINGS PACKED FOR TRANSPORT. JUGULAR CENTRAL LINE DC'D PER ORDER. NO DISTRESS NOTED. PT AWAITING [facility] PICKUP. TELE OFF.
== END 2020-05-11 15:35 | DRG 314 ==
LOC: ICU 13:24 → 2N 05-09 18:44
PROVIDERS: Hospitalist; Internal Medicine; Internal Medicine Nephrology; ADMIT Hospitalist; ATTEND Hospitalist
PROC: 02H633Z Insertion of Infusion Device into Right Atrium, Percutaneous Approach (ICD-10-PCS; principal; 2020-04-28)
DX: I95.9 Hypotension, unspecified (principal); L89.153 Pressure ulcer of sacral region, stage 3; J96.01 Acute respiratory failure with hypoxia; E43 Unspecified severe protein-calorie malnutrition; N17.9 Acute kidney failure, unspecified; I13.0 Hypertensive heart and chronic kidney disease with heart failure and stage 1 through stage 4 chronic kidney disease, or unspecified chronic kidney disease; G93.40 Encephalopathy, unspecified; I48.21 Permanent atrial fibrillation; L97.929 Non-pressure chronic ulcer of unspecified part of left lower leg with unspecified severity; L97.919 Non-pressure chronic ulcer of unspecified part of right lower leg with unspecified severity; I48.20 Chronic atrial fibrillation, unspecified; I50.42 Chronic combined systolic (congestive) and diastolic (congestive) heart failure; N18.4 Chronic kidney disease, stage 4 (severe); N40.0 Benign prostatic hyperplasia without lower urinary tract symptoms; M19.90 Unspecified osteoarthritis, unspecified site; E11.51 Type 2 diabetes mellitus with diabetic peripheral angiopathy without gangrene; E11.22 Type 2 diabetes mellitus with diabetic chronic kidney disease; K21.9 Gastro-esophageal reflux disease without esophagitis; F32.9 Major depressive disorder, single episode, unspecified; E11.42 Type 2 diabetes mellitus with diabetic polyneuropathy; F41.9 Anxiety disorder, unspecified; E03.9 Hypothyroidism, unspecified; E11.43 Type 2 diabetes mellitus with diabetic autonomic (poly)neuropathy; D69.6 Thrombocytopenia, unspecified; D63.8 Anemia in other chronic diseases classified elsewhere; M54.5 Low back pain; L89.626 Pressure-induced deep tissue damage of left heel; L30.8 Other specified dermatitis; L98.419 Non-pressure chronic ulcer of buttock with unspecified severity; L98.499 Non-pressure chronic ulcer of skin of other sites with unspecified severity; E11.21 Type 2 diabetes mellitus with diabetic nephropathy; G72.9 Myopathy, unspecified; E87.5 Hyperkalemia; G89.29 Other chronic pain; Z88.0 Allergy status to penicillin; Z88.1 Allergy status to other antibiotic agents; Z88.8 Allergy status to other drugs, medicaments and biological substances; Z89.411 Acquired absence of right great toe; Z98.49 Cataract extraction status, unspecified eye; Z68.30 Body mass index [BMI] 30.0-30.9, adult; Z79.899 Other long term (current) drug therapy; Z79.82 Long term (current) use of aspirin; Z79.4 Long term (current) use of insulin
CPT/HCPCS: 10078; 10081; 10797